=== PATIENT | male | born 1930 | race Caucasian/White ===

== ENCOUNTER 2017-03-07 09:34 | Outpatient (CLI) | payer MEDICARE, BC ==
--- NOTE | 2017-03-07 10:44 | CT ---
CT CHEST NONCONTRAST: Date: 03/07/17 HISTORY: Right lower lobe nodule. Follow-up. COMPARISON: 10/03/13 and 03/17/16. FINDINGS: The ill-defined infiltrate-like opacity involving the superior segment left lower lobe abutting the major fissure is unchanged in appearance from the previous exam. Dating back to 2013, slight enlarge ment has occurred. No new parenchymal lung masses are evident. No pleural fluid or pneumothorax. Lack of contrast limits evaluation of the mediastinum. There is calcification in the arterial struct ures. Within the partially visualized upper abdomen, a cyst within the dome of the liver is unchange d in appearance. IMPRESSION: 1. Stable CT appearance of the focal infiltrate within the superior segment right lower lobe compar ed to most recent exams. Slight long-term enlargement has occurred since 2013. No new abnormalities are evident. 2. Atherosclerosis. POS: JEFFREY
== END 2017-03-07 09:35 | disposition home or self-care (01) ==
LOC: CT 09:34
PROVIDERS: ATTEND Internal Medicine Critical Care Medicine
DX: R91.1 Solitary pulmonary nodule (principal); R91.8 Other nonspecific abnormal finding of lung field; I70.90 Unspecified atherosclerosis
CPT/HCPCS: 71250

== ENCOUNTER 2017-09-03 23:10 | Inpatient (IN) | payer MEDICARE, BC ==
--- NOTE | 2017-09-04 | RAD ---
AP VIEW OF THE CHEST: 09/03/17 INDICATION: Shortness of breath with cough and fever. The exam is compared to a prior dated 12/21/16. FINDINGS: There is patchy air space opacity within the right lung but more so within the right lower lobe. No p leural effusion is evident. Mild cardiomegaly is stable. IMPRESSION: Patchy air space opacity in the right lower lobe suspicious for pneumonia. Recommend radiographic fol lowup to resolution. POS: LICHAH
[2017-09-04] MEDS ORDERED: Acetaminophen 500 MG TAB ONE (00:01)
[2017-09-04] MEDS ORDERED: cefTRIAXone\\ROCEPHIN 2 GM VIAL ONE (00:13)
[2017-09-04 00:31] LABS: #Lymphocytes 0.9 thou/uL (1.20-3.40); #Monocytes 0.8 thou/uL (0.11-0.59); #Neutrophils 9.1 thou/uL (1.40-6.50); %Basophils 0.2 % (0.0-1.0); %Eosinophils 0.1 % (0.0-10.0); %Lymphocytes 8.3 % (21.0-51.0); %Monocytes 7.1 % (0.0-10.0); %Neutrophils 84.3 % (42.0-75.0); Hemoglobin 12.9 g/dL (14.0-18.0); Mean Corpuscular HGB CONC 34.3 g/dL (32.0-36.0); Mean Corpuscular Hemoglobin 30.3 pg (27.0-31.0); Mean Corpuscular Volume 88.2 fl (80.0-94.0); Mean Platelet Volume 8.2 fL (7.4-10.4); Platelet Count 121 thou/uL (130-400); RBC Distribution Width 12.4 % (11.5-14.5); Red Blood Cell (RBC) Count 4.27 mill/uL (4.70-6.10); White Blood Cell (WBC) Count 10.8 thou/uL (4.8-10.8)
[2017-09-04 00:32] LABS: ALT (SGPT) 24 U/L (8-55); AST (SGOT) 22 U/L (5-34); Albumin 3.9 g/dL (3.4-4.8); Alkaline Phosphatase 68 U/L (40-150); Anion Gap 11 mmol/L (10-20); BUN (Urea Nitrogen) 18 mg/dL (8.4-25.7); Bilirubin, Total 0.6 mg/dL (0.2-1.2); CK (CPK) 176 U/L (30-200); Calc. Creatinine Clearance 0 mL/min (70-130); Carbon Dioxide 28 mmol/L (23-31); Chloride 99 mmol/L (98-107); Estimated GFR-MDRD 61; Globulin 2.3 g/dL (2.4-3.5); Glucose 117 mg/dL (83-110); Lipase 14 U/L (8-78); Magnesium 1.8 mg/dL (1.6-2.6); Potassium 3.4 mmol/L (3.5-5.1); Protein, Total 6.2 g/dL (5.8-8.1); Sodium 135 mmol/L (136-145)
[2017-09-04 00:34] LABS: CKMB 0.9 ng/mL (0-6.6); Troponin I Less than 0.010 ng/mL (< 0.028)
[2017-09-04] MEDS ORDERED: Oseltamivir 75 MG CAP PO SCH (02:00)
[2017-09-04] MEDS ORDERED: Esmolol 2,500 MG/250 ML 250 ML IVPB SCH (05:15)
[2017-09-04 05:21] LABS: Bilirubin Negative (Negative); Blood, Urine Negative (Negative); Clarity CLEAR (Clear); Glucose, Urine (Dipstick) Negative (Negative); Leukocyte Negative (Negative); Nitrite Negative (Negative); Protein, Urine (Dipstick) Trace mg/dL (Neg-Trace); Urobilinogen 0.2 mg/dL (0.2-1.0)
--- NOTE | 2017-09-04 10:46 | PDOC.EVN ---
Event Note - Event Note Event Note: H&P DICTATED #[id number]
[2017-09-04] MEDS ORDERED: Potassium Chloride 20 MEQ TAB PO SCH (17:00)
[2017-09-04] MEDS ORDERED: predniSONE 20 MG TAB PO SCH (17:00)
--- NOTE | 2017-09-04 17:42 | CON ---
DATE OF CONSULTATION: 09/04/2017 SERVICE: Pulmonary Medicine. REASON FOR CONSULTATION: [facility] patient. HISTORY OF PRESENT ILLNESS: The patient is an 86-year-old white male with past medical history significant for essentially nothing. He was in his usual state of health until about 5 days prior to presentation. He started having a cough and congestion come on. He went to his primary care physician's office and was given an allergy medication. He also took some Mucinex. This progressed over the next 2 days. On , he went back and was given a small inhaler. Treating a mild case of bronchitis. He took this initially. He felt better, but then over the next 2 days, he got progressively weaker. He went back to an Urgent Care Clinic yesterday on Tuesday. He was given a dose of antibiotic. He took the antibiotic and went home to rest. Later that evening, when it was time for him to get out of a chair and into bed, he was so weak, his could get him out. At baseline, the patient is ambulatory. He typically is minimally active, but does engage in social activities like pool on a weekly basis as well as [employer] with some friends on a weekly basis. He drinks at least 3 glasses of wine on a daily basis. The gives me the impression that frequently he drinks much more than this. In addition to these symptoms, he has been having cough productive of yellow sputum, fever to 101 and 102. He does not have any nausea or vomiting. He is not having any myalgias. Apparently last night, he briefly went into atrial fibrillation with RVR, but has subsequently converted back to a sinus rhythm. PAST MEDICAL HISTORY: 1. Hypertension. 2. Dyslipidemia. 3. Diverticulosis. 4. Coronary artery disease. 5. History of skin cancer. PAST SURGICAL HISTORY: 1. Percutaneous coronary intervention. 2. Skin cancer. 3. Cholecystectomy. SOCIAL HISTORY: He drinks on a daily basis. It is at least three drinks daily , but sometimes much more. He denies any alcohol or illicit drug use. He has no exposure to chemicals, dust asbestos or tuberculosis. FAMILY HISTORY: Noncontributory. ALLERGIES: No known drug allergies. MEDICATIONS: List of his inpatient medications were reviewed. Multiple updates were made. REVIEW OF SYSTEMS: General, head, ears, eyes, nose, throat, cardiovascular, respiratory, GI, , musculoskeletal, neurologic and skin is negative except as mentioned in the HPI. PHYSICAL EXAMINATION: VITAL SIGNS: Afebrile currently. Pulse 104, blood pressure 65/56, respirations 23, saturation 98% on 2 liters nasal cannula. GENERAL: The patient is awake and alert, in no apparent distress. LUNGS: Decent air entry. Crackles are present. There is also rhonchi and prolonged expiratory phase with polyphonic wheezing. HEART: Normal rate, regular. ABDOMEN: Soft, nontender, nondistended. Bowel sounds are positive. MUSCULOSKELETAL: No cyanosis or clubbing. There is no pitting in the bilateral lower extremities. NEUROLOGIC: Nonfocal. LABORATORY DATA: WBC 10.8, hemoglobin 12.9, platelets 121,000. Basic metabolic profile is significant for potassium of 3.4. Liver function studies are unremarkable. Lactate negative. BNP 137, troponin 0.01. Urinalysis is unremarkable. Influenza A and B are negative. IMAGING: Chest x-ray demonstrates minimal bibasilar infiltrate is present. I do not see much in the way of pulmonary vascular congestion or cardiomegaly. ASSESSMENT: 1. Acute hypoxic respiratory failure. 2. Acute bronchitis. 3. Community-acquired pneumonia. 4. Atrial fibrillation with rapid ventricular response. 5. Hypokalemia. 6. Alcohol overuse. PLAN: We will continue his antibiotics. I will add some steroids and nebulized medication. Potassium will be replaced today. Magnesium will be obtained with tomorrow morning's labs. He will remain in the IMCU for the time being, but if he has no events on telemetry over the next 24 hours, he can likely be discharged home if he is on oxygen. Cardiology opinion apparently is pending. Dr. Mariscal will resume care in the morning. 70 minutes have been devoted to this patient in various activities. I personally reviewed all imaging studies and laboratory data noted within this document. For fifty percent of this time, I was interacting with the patient at the bedside or coordinating care with the care team. For the remainder of the time I was immediately available to the patient in the hospital unit. FAMILIA
[2017-09-04] MEDS: Atorvastatin Calcium 20 MG TAB PO SCH (20:58)
[2017-09-04] MEDS: guaiFENesin ER 600 MG TAB PO SCH (20:58)
[2017-09-04] MEDS: Carvedilol 25 MG TAB PO SCH (20:58)
[2017-09-04] MEDS ORDERED: Carvedilol 25 MG TAB PO SCH (21:00)
[2017-09-04] MEDS ORDERED: Lisinopril/Hydrochlorothiazide 20 mg/12.5 mg Tablet PO SCH (21:00)
[2017-09-05 06:16] LABS: Anion Gap 12 mmol/L (10-20); BUN (Urea Nitrogen) 16 mg/dL (8.4-25.7); Calc. Creatinine Clearance 67 mL/min (70-130); Calcium 8.8 mg/dL (7.8-10.44); Carbon Dioxide 28 mmol/L (23-31); Chloride 100 mmol/L (98-107); Estimated GFR-MDRD 66; Glucose 168 mg/dL (83-110); Magnesium 1.9 mg/dL (1.6-2.6); Potassium 3.7 mmol/L (3.5-5.1); Sodium 136 mmol/L (136-145)
--- NOTE | 2017-09-05 07:57 | CON ---
DATE OF CONSULTATION: 09/04/2017 HISTORY OF PRESENT ILLNESS: The patient is an 86-year-old gentleman who presents with weakness, dyspnea and was noted to have a rapid irregular heart rate. The patient has a previous history of coronary artery disease. In 2009, he underwent PTCA and stent placement into the RCA. The patient has subsequently done very well. He was in his usual state of health when he recently developed fevers and chills. He was placed on an antibiotic. He developed extreme weakness and was brought to the hospital for further evaluation. The patient was noted to be in an irregular heart rhythm. The patient denied having any palpitations. The patient denies have any chest discomfort. PAST MEDICAL HISTORY: 1. Coronary artery disease. 2. Hypertension. 3. Diverticulosis. PAST SURGICAL HISTORY: Cholecystectomy. SOCIAL HISTORY: Heavy use of alcohol. He is a former smoker. FAMILY HISTORY: Positive family history of coronary artery disease. ALLERGIES: No known drug allergies. MEDICATIONS ON ADMISSION: 1. Zetia 5 daily. 2. Lisinopril/hydrochlorothiazide 20/12.5 b.i.d. 3. Protonix 40 daily. 4. Potassium 8 mg daily. 5. Simvastatin 40 at bedtime. 6. Coreg 2 tablets p.o. b.i.d. 7. Aspirin 81 daily. 8. Azithromycin 250 daily. REVIEW OF SYSTEMS: Ten point system noted for increasing dyspnea, productive sputum and marked weakness. Ten-point system otherwise unremarkable. PHYSICAL EXAMINATION: GENERAL: Elderly gentleman in mild distress. VITAL SIGNS: Blood pressure was 96/56. NECK: Showed no jugular venous distention. LUNGS: His lungs have coarse breath sounds bilateral. HEART: Regular rate and rhythm, normal S1, S2. ABDOMEN: His abdomen is distended. EXTREMITIES: Showed trace edema. SKIN: Warm and dry. NEUROLOGIC: Nonfocal. VASCULAR: Radial pulses are 2+. LABORATORY RESULTS: Sodium is 135, potassium 3.4, chloride 99, bicarbonate 28, BUN 18, creatinine is 1.14, glucose is 117. BNP was 137, troponin less than 0.01. White blood count 10.8, hemoglobin 12.9, hematocrit 37.6, platelets 121. EKG revealed atrial fibrillation with a nonspecific ST-T wave abnormality. Follow up EKG #2 revealed normal sinus rhythm, normal ECG. IMPRESSION: 1. Paroxysmal atrial fibrillation. 2. Percutaneous transluminal coronary angioplasty and stent placement. 3. Hypertension. 4. Pneumonia. 5. Obesity. 6. Ethanol abuse. This gentleman presents with paroxysmal atrial fibrillation. He converted to normal sinus rhythm. From a cardiac standpoint, he has an elevated Chads-Vas score. Secondary to his advanced age and history of hypertension I would recommend chronic anticoagulation therapy. I would place the patient on Apixaban,and would discontinue his aspirin. We will follow this patient with you through his hospitalization. At this time, his blood pressure is low. We will hold his lisinopril and continue carvedilol. MTDD
--- NOTE | 2017-09-05 08:20 | HP ---
DATE OF ADMISSION: 09/04/2017 CHIEF COMPLAINT: Cough and shortness of breath. HISTORY OF PRESENT ILLNESS: This is an 86-year-old male who admitted to the hospital after 2-3 days of coughing and shortness of breath. The patient denies any fevers at home. On admission, the patie nt was noted to have a right lower lobe pneumonia on chest x-ray by ER and was given antibiotics appr opriately and was admitted to the hospital. The patient also states that he has had these symptoms i n the past; however, has not had issues to this extent of this intensity. He states in the past, he was given a Z-ALESIA a year ago and his symptoms improved; however, this time around patient states that given the high intensity, presented himself to the ER instead of going to Family Medicine doctor. T he patient currently denies any nausea, vomiting, diarrhea, constipation, chest pains, chills, but do es admit to shortness of breath and some fevers at home subjectively. The patient denies any allevia ting or aggravating factors. No other associated symptoms or complaints. at bedside. The pernell ent was seen and evaluated in the IMCU. All questions answered. ALLERGIES: No known drug allergies. SOCIAL HISTORY: Denies any drinking or smoking. States that he quit smoking in 1986. FAMILY HISTORY: Positive for heart disease, diabetes, and stroke. PAST MEDICAL HISTORY: Atrial fibrillation, abdominal surgeries after war injuries, hypertension, IMPLEMENTATION ENGINEER D, and heart disease. REVIEW OF SYSTEMS: Twelve point review of systems performed. Pertinent positives in the HPI, otherw ise negative. HOME MEDICATIONS: See AUG. PHYSICAL EXAMINATION: VITAL SIGNS: Blood pressure 106/85, respiratory rate of 18, heart rate of 98, temperature of 98. GENERAL: The patient is lying in bed, in no acute distress, appears very weak, but oriented. HEENT: Normocephalic, atraumatic. Pupils equal, round, react to light and accommodation. Oral cavi ty moist and pink. NECK: Supple, nontender, mobile thyroid appreciated. LUNGS: Clear to auscultation bilaterally, mildly decreased lung sounds on the right middle lobe jony on. CARDIOVASCULAR: S1, S2, 2/6 systolic ejection murmur appreciated. Irregularly irregular rhythm also noted. ABDOMEN: Positive bowel sounds. Surgical scar also noted. Soft, nontender, rotund abdomen. No ___ __ appreciated. EXTREMITIES: 2+ peripheral pulses with 1+ pitting edema in bilateral lower extremities. NEUROLOGIC: Cranial nerves II-XII intact. No loss of motor or sensory function. LABORATORY DATA: CBC indicates WBC count of 7.8, hemoglobin of 13, hematocrit of 37.6, platelet coun t of 121. BMP shows sodium 135, potassium 3.4, chloride 99, carbon dioxide 28, BUN 18, creatinine 1. 14. Lactic acid of 1.6. Urinalysis is negative for any abnormalities. Chest x-ray reveals patchy s pace opacity in the right lower lobe suspicious for pneumonia. ASSESSMENT AND PLAN: 1. Pneumonia. 2. Atrial fibrillation. 3. Hypertension. 4. Gastroesophageal reflux disease. 5. Hyperlipidemia. 6. Hypovolemia. PLAN: At this point in time, we will start the patient on Levaquin. We will hold off on IV fluids a s the patient appears volume overloaded to begin with and appears to have heart failure. Given his p ast medical history, we will consult Cardiology as well as Pulmonary. The patient sees Dr. Robin sewell Cardiology and Dr. Bhagat for Pulmonary outpatient. Repeat chest x-ray in the morning. We will o btain blood cultures and monitor the patient for symptomatic improvement. We will give sequential co mpression devices for DVT prophylaxis and Protonix for GI prophylaxis. Case and plan discussed with the patient and at length. They understand and agree with this plan.
[2017-09-05] MEDS: Ezetimibe 10 MG TAB PO SCH (08:59)
[2017-09-05] MEDS: Carvedilol 25 MG TAB PO SCH ×2 (09:00→21:15)
[2017-09-05] MEDS: predniSONE 20 MG TAB PO SCH (09:00)
[2017-09-05] MEDS: guaiFENesin ER 600 MG TAB PO SCH ×2 (09:00→21:15)
[2017-09-05] MEDS: Ferrous Fumarate 324 MG TAB PO SCH (09:00)
--- NOTE | 2017-09-05 17:48 | PDOC.PN ---
- Subjective Encounter Start Date: 09/05/17 Encounter Start Time: 17:35 Subjective: f/u for suspected CAP RML on Levaquin 500mg daily. Overall feeling -: better. Off O2 and maintaining sats in 90% range. - Objective MAR Reviewed: Yes Vital Signs & Weight: Vital Signs (12 hours) Temp Pulse Resp BP Pulse Ox 09/05/17 17:37 98.7 F 73 20 160/86 H 92 L 09/05/17 11:58 97.7 F 75 20 132/59 L 93 L 09/05/17 08:02 98.4 F 77 20 133/85 95 09/05/17 08:00 98.4 F 77 20 94 L 09/05/17 07:08 73 14 95 Weight Weight 210 lb 15.718 oz I&O: 09/04/17 09/05/17 09/06/17 06:59 06:59 06:59 Intake Total 400 Output Total 860 Balance -460 Result Diagrams: 09/03/17 23:52 09/05/17 04:13 Additional Labs: Microbiology 09/04/17 02:10 Nasal swab Influenza Types A,B Direct EIA - Final 09/04/17 04:03 Urine voided Urine Culture - Preliminary NO GROWTH AT 24 HOURS 09/03/17 23:41 Venous blood - Right Arm Blood Culture - Preliminary Specimen has been received and culture in progress. No Growth to date. 09/03/17 23:41 Venous blood - Left Arm Blood Culture - Preliminary Specimen has been received and culture in progress. No Growth to date. Laboratory Tests 09/03/17 23:52 B-Natriuretic Peptide 137.4 H Radiology Reviewed by me: Yes (2D echo - EF 55%, diast dysfxn) EKG Reviewed by me: Yes (Tele - SR) Phys Exam - Physical Examination Constitutional: NAD HEENT: PERRLA, oral pharynx no lesions Neck: no JVD, supple few coarse sounds in R lung field Respiratory: no wheezing Cardiovascular: RRR Gastrointestinal: soft, non-tender, no distention, positive bowel sounds Musculoskeletal: no edema, pulses present Neurological: normal sensation, moves all 4 limbs Psychiatric: A&O x 3 Skin: normal turgor, cap refill <2 seconds Dx/Plan (1) RML pneumonia Code(s): J18.1 - LOBAR PNEUMONIA, UNSPECIFIED ORGANISM Status: Acute Comment : 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, continue Levaquin 500mg daily (2) Acute respiratory failure with hypoxia Code(s): J96.01 - ACUTE RESPIRATORY FAILURE WITH HYPOXIA Status: Acute Comment: Improving, continue Dulera, Prednisone, Duonebs, wean off O2 support (3) Paroxysmal atrial fibrillation with rapid ventricular response Code(s): I48.0 - PAROXYSMAL ATRIAL FIBRILLATION Status: Acute Comment: Converted to SR, continue Coreg 25mg BID (4) Hypokalemia Code(s): E87.6 - HYPOKALEMIA Status: Acute Comment: Resolving (5) Coronary artery disease Code(s): I25.10 - ATHSCL HEART DISEASE OF [place] CORONARY ARTERY W/O ANG PCTRS Status: Chronic Comment: Continue ASA 81mg daily, Lipitor, Coreg - Plan continue antibiotics, PT/OT, geriatric social worker, respiratory therapy, DVT proph w/ SCDs Stable overall -: Continue Levaquin 500mg daily -: Continue Duonebs, Dulera and Prednisone -: OOB with PT -: Transfer to medical floor * AM lab: BMP
[2017-09-05] MEDS ORDERED: Loratadine 10 MG TAB PO PRN (18:00)
[2017-09-05] MEDS: Mometasone/Formoterol 120 PUFF INHALER INH SCH (18:21)
[2017-09-05] MEDS ORDERED: Potassium Chloride 20 MEQ TAB PO SCH (19:00)
[2017-09-05] MEDS ORDERED: Furosemide 20 MG/2 ML VIAL SLOW IVP SCH (19:00)
--- NOTE | 2017-09-05 20:28 | PRG ---
DATE OF SERVICE: 09/05/2017 SUBJECTIVE: Mr. Rivera was admitted to hospital with pneumonia. While he is here, he has been found to have an increased BNP and also transient atrial fibrillation with a rate of 117. He is back in s inus rhythm today. He also had an episode of nonsustained ventricular tachycardia 5 beats yesterday. He is feeling much better. His fever is controlled. PHYSICAL EXAMINATION: VITAL SIGNS: His blood pressure is 160/86, pulse 70. LUNGS: Some rhonchi, no wheezing. CARDIAC: Normal S1, normal S2. ABDOMEN: Soft, nontender. EXTREMITIES: There is only minimal edema. LABORATORY DATA: BNP in the was 137. The echocardiogram showed normal left ventricular systoli c function. CONCLUSION: 1. Diastolic heart failure, probably brought on by pneumonia. 2. Pneumonia. 3. Paroxysmal atrial fibrillation, has been in sinus rhythm. PLAN: 1. We will start subcutaneous Lovenox. 2. Consideration for Eliquis at the time of discharge. 3. Give a single dose of furosemide and potassium tonight. 4. Check base met tomorrow. 5. Like to monitor at least for 24 more hours on the monitor.
[2017-09-05] MEDS: Atorvastatin Calcium 20 MG TAB PO SCH (21:15)
[2017-09-05] MEDS: Valsartan 80 MG TAB PO SCH (21:15)
[2017-09-06 05:03] LABS: Anion Gap 11 mmol/L (10-20); BUN (Urea Nitrogen) 18 mg/dL (8.4-25.7); Calc. Creatinine Clearance 76 mL/min (70-130); Calcium 8.4 mg/dL (7.8-10.44); Carbon Dioxide 25 mmol/L (23-31); Chloride 102 mmol/L (98-107); Estimated GFR-MDRD 76; Glucose 141 mg/dL (83-110); Iron 43 ug/dL (65-175); Iron Binding Capacity, Total 174 mcg/dL (261-462); Magnesium 1.8 mg/dL (1.6-2.6); Potassium 3.4 mmol/L (3.5-5.1); Sodium 135 mmol/L (136-145)
[2017-09-06] MEDS: Mometasone/Formoterol 120 PUFF INHALER INH SCH ×2 (07:24→18:12)
--- NOTE | 2017-09-06 08:45 | PRG ---
DATE OF SERVICE: 09/05/2017 SUBJECTIVE : Mr. Rivera over the weekend. PHYSICAL EXAMINATION: VITAL SIGNS: He is afebrile, heart rate is 77, respiratory rate 20, oximetry is 93% on room air, blo od pressure 132/59. LUNGS: Remarkable for diffuse wheezes. HEART: Regular rhythm. S1 and S2 are normal. ABDOMEN: Soft and nontender. EXTREMITIES: Without clubbing, cyanosis, or edema. IMAGING DATA: Chest radiograph was reviewed, suggestive of pneumonia. IMPRESSION: 1. Pneumonia, community acquired. 2. History of density behind his scapula on the right, which had a low PET uptake. This has been fo llowed for several years and unchanged. Actually my initial concern for this was possibly an early s arcoma, but it has never changed, so we have not pursued this and he has actually declined workup of this. 3. History of PET negative, asymptomatic, PET negative, pulmonary nodule. 4. Reactive airways with this infection. 5. History of kidney stone. 6. 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 PLAN: Transfer out of the intermediate care unit to a medical bed. Ambulating if he does well with ambulation. Hopefully he will be a candidate to go home in 24-48 hours.
[2017-09-06] MEDS ORDERED: Enoxaparin Sodium 40 MG/0.4 ML SYRINGE SC SCH (09:00)
[2017-09-06] MEDS: guaiFENesin ER 600 MG TAB PO SCH ×2 (09:27→21:02)
[2017-09-06] MEDS: predniSONE 20 MG TAB PO SCH (09:27)
[2017-09-06] MEDS: Aspirin 81 mg Enteric Coated Tablet PO SCH (09:28)
[2017-09-06] MEDS: Valsartan 80 MG TAB PO SCH ×2 (09:28→21:01)
[2017-09-06] MEDS: Carvedilol 25 MG TAB PO SCH ×2 (09:28→21:02)
[2017-09-06] MEDS: Ezetimibe 10 MG TAB PO SCH (09:28)
[2017-09-06] MEDS: Ferrous Fumarate 324 MG TAB PO SCH (09:47)
--- NOTE | 2017-09-06 10:21 | PRG ---
DATE OF SERVICE: 09/06/2017 SUBJECTIVE: Mr. Rivera is doing much better today, feels better. He had a good diuresis yesterday and put out a couple of liters of fluid last night with 20 of Lasix. PHYSICAL EXAMINATION: VITAL SIGNS: Blood pressure is 140/70, pulse 74. LUNGS: Clear. CARDIAC: Normal S1 and normal S2. ABDOMEN: Soft, nontender. EXTREMITIES: Trivial edema, trace. ASSESSMENT: 1. Diastolic heart failure, improved. 2. Paroxysmal atrial fibrillation. 3. Hypertension. 4. Coronary artery disease. PLAN: 1. Start Xarelto. 2. Continue aspirin. 3. Daily Lasix. 4. Valsartan. 5. Carvedilol. 6. Home anytime from my standpoint.
[2017-09-06] MEDS ORDERED: Potassium Chloride 20 MEQ TAB PO SCH (10:30)
--- NOTE | 2017-09-06 14:32 | PDOC.PN ---
- Subjective Encounter Start Date: 09/06/17 Encounter Start Time: 14:10 Subjective: f/u for RML CAP on Levaquin. Feeling better except some coughing. -: Xarelto initiated for paroxysmal a-fib now SR. - Objective MAR Reviewed: Yes Vital Signs & Weight: Vital Signs (12 hours) Temp Pulse Resp BP Pulse Ox 09/06/17 13:53 84 16 97 09/06/17 12:00 98.5 F 75 16 136/77 92 L 09/06/17 07:46 98.5 F 75 16 141/73 H 95 09/06/17 07:24 86 16 96 09/06/17 07:22 86 16 96 09/06/17 04:00 97.9 F 72 16 143/71 H 96 Weight Weight 210 lb 5.136 oz I&O: 09/05/17 09/06/17 09/07/17 06:59 06:59 06:59 Intake Total 400 1640 Output Total 860 1900 Balance -460 -260 Result Diagrams: 09/03/17 23:52 09/06/17 04:11 Radiology Reviewed by me: Yes (2D echo - EF 55-60%, diast dysxn) EKG Reviewed by me: Yes (Tele - SR) Phys Exam - Physical Examination Constitutional: NAD HEENT: PERRLA, oral pharynx no lesions Neck: no JVD, supple scattered coarse sounds on R Respiratory: no wheezing Cardiovascular: RRR Gastrointestinal: soft, non-tender, no distention, positive bowel sounds Musculoskeletal: no edema, pulses present Neurological: normal sensation, moves all 4 limbs Psychiatric: A&O x 3 Skin: normal turgor, cap refill <2 seconds Dx/Plan (1) RML pneumonia Code(s): J18.1 - LOBAR PNEUMONIA, UNSPECIFIED ORGANISM Status: Acute Comment : 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, continue Levaquin 500mg daily (2) Acute respiratory failure with hypoxia Code(s): J96.01 - ACUTE RESPIRATORY FAILURE WITH HYPOXIA Status: Acute Comment: Improving, continue Dulera, Prednisone, Duonebs, wean off O2 support (3) Paroxysmal atrial fibrillation with rapid ventricular response Code(s): I48.0 - PAROXYSMAL ATRIAL FIBRILLATION Status: Acute Comment: Converted to SR, continue Coreg 25mg BID, Lasix 20mg daily, Xarelto 20mg daily (4) Hypokalemia Code(s): E87.6 - HYPOKALEMIA Status: Acute Comment: Resolving (5) Coronary artery disease Code(s): I25.10 - ATHSCL HEART DISEASE OF [place] CORONARY ARTERY W/O ANG PCTRS Status: Chronic Comment: Continue ASA 81mg daily, Lipitor, Coreg - Plan continue antibiotics, sr. social media & mobile manager, respiratory therapy, out of bed/ambulate , DVT proph w/SCDs Stable overall -: Continue Levaquin 500mg daily -: Continue Coreg 25mg BID -: Xarelto 20mg daily -: OOB/ambulate * KCL replacement * AM lab: BMP * Transfer to tele * Home in am
--- NOTE | 2017-09-06 15:18 | PQF ---
CLINICAL DOCUMENTATION IMPROVEMENT CLARIFICATION FORM: ICD-10 Updated PLEASE DO AN ADDENDUM TO THE PROGRESS NOTE WITH ANY DOCUMENTATION UPDATES OR ADDITIONS AND CARRY THROUGH TO DC SUMMARY. THANK YOU. DATE: 09/06/17 ATTN : DR. VERDIN Please exercise your independent, professional judgment in responding to the clarification form. Clinical indicators are provided on the bottom of this form for your review Please check appropriate box(es): [ ] Sepsis due to: (Pna, UTI, gangrenous gall bladder, etc.) Due to: [ ] Device (please specify) [ ] Implant [ ] Graft [ ] Infusion [ ] SIRS due to non-infectious process (please specify etiology) [ ] with organ dysfunction [ ] without organ dysfunction [ ] Severe sepsis with acute organ dysfunction of: (Examples: respiratory failure, encephalopathy, acute kidney failure, other) [ ] Septic Shock [ x ] Localized infection without sepsis [ ] Other diagnosis [ ] Unable to determine In addition, please specify: Present on Admission (POA): [ x ] Yes [ ] No [ ] Unable to determine For continuity of documentation, please document condition throughout progress notes and discharge summary. Thank You. CLINICAL INDICATORS - SIGNS / SYMPTOMS / LABS ER NOTE: "SEPSIS" PULSE 106 RR 24 TEMP 103.1 RISKS: PNEUMONIA TREATMENT: IV FLUIDS IV VANCOMYCIN (ER) IV ROCEPHIN (ER) IV LEVAQUIN (09/04-PRESENT) URINE AND BLOOD CULTURES (This form is maintained as a part of the permanent medical record) 2014 [employer]. All Rights Reserved [email or web address]
[2017-09-06] MEDS ORDERED: Temazepam 15 MG CAP PO PRN (16:34)
[2017-09-06] MEDS ORDERED: Rivaroxaban 10 MG TAB PO SCH (18:00)
[2017-09-06] MEDS: Atorvastatin Calcium 20 MG TAB PO SCH (21:02)
[2017-09-07 05:25] VITALS: BMI 30.6
[2017-09-07 06:21] LABS: Anion Gap 10 mmol/L (10-20); BUN (Urea Nitrogen) 17 mg/dL (8.4-25.7); Calc. Creatinine Clearance 81 mL/min (70-130); Calcium 8.5 mg/dL (7.8-10.44); Carbon Dioxide 26 mmol/L (23-31); Chloride 102 mmol/L (98-107); Estimated GFR-MDRD 80; Glucose 123 mg/dL (83-110); Potassium 3.6 mmol/L (3.5-5.1); Sodium 134 mmol/L (136-145)
[2017-09-07] MEDS: Mometasone/Formoterol 120 PUFF INHALER INH SCH (07:37)
--- NOTE | 2017-09-07 07:40 | PRG ---
DATE OF SERVICE: 09/06/2017 SUBJECTIVE: Mr. Rivera says he is feeling better. OBJECTIVE: VITAL SIGNS: He is afebrile. His vital signs have been stable. His pulse 81, respiratory rate 18, oximetry is 94% on room air, blood pressure 142/78. LUNGS: Still remarkable for very faint wheezes. HEART: Regular rhythm. ABDOMEN: Soft. IMPRESSION: 1. Pneumonia. 2. Diastolic heart failure. 3. Paroxysmal atrial fibrillation. 4. Asthmatic bronchitis with pneumonia. 5. History of a density behind his scapula on the right which had a low PET uptake and was calcified , this has not changed with serial exams. 6. History of a PET negative pulmonary nodule. 7. History of kidney stone. 8. History of gastrointestinal bleed with an arteriovenous malformation in the past. 9. Anticoagulation on this admission. 10. History of coronary artery disease. PLAN: I think he is stable to go home in the morning, hopefully. He can be transferred out of the ntermediate care unit. He is complaining of insomnia, so written for Restor[facility]. He has not ambulated all since he has been h ere and would be nice to see him ambulate before he goes to the house. It is hard to remember that omi clifford is 86 years old as he actually looks about 15 years younger than he is. It is imperative that we w alk before he goes to the house.
[2017-09-07] MEDS ORDERED: Potassium Chloride 20 MEQ TAB PO SCH (08:00)
[2017-09-07] MEDS ORDERED: Furosemide 20 MG TAB PO SCH (09:00)
[2017-09-07] MEDS: guaiFENesin ER 600 MG TAB PO SCH (09:23)
[2017-09-07] MEDS: Carvedilol 25 MG TAB PO SCH (09:24)
[2017-09-07] MEDS: predniSONE 20 MG TAB PO SCH (09:24)
[2017-09-07] MEDS: Valsartan 80 MG TAB PO SCH (09:24)
[2017-09-07] MEDS: Ezetimibe 10 MG TAB PO SCH (09:25)
[2017-09-07] MEDS: Aspirin 81 mg Enteric Coated Tablet PO SCH (09:25)
[2017-09-07] MEDS: Ferrous Fumarate 324 MG TAB PO SCH (09:26)
--- NOTE | 2017-09-07 12:07 | DIS ---
DATE OF ADMISSION: 09/04/2017 DATE OF DISCHARGE: 09/07/2017 DISCHARGE DIAGNOSES: 1. Right middle lobe community-acquired pneumonia, suspected gram positive cocci, improved. 2. Acute hypoxic respiratory failure secondary to #1, resolved. 3. Paroxysmal atrial fibrillation with rapid ventricular response, current sinus mechanism, stable. 4. Hypokalemia, resolved. 5. Coronary artery disease, chronic and stable. 6. Hypertension, labile. CONSULTATIONS: Dr. Kelly with Cardiology Service, Dr. Mariscal and Dr. Bhagat with Pulmonology Servi ce. PERTINENT LABORATORY AND X-RAY FINDINGS: Potassium ranged between 3.4-3.7. Lactic acid level 1.6. Magnesium level ranged between 1.8-1.9. Serum iron 43, TIBC 174, ferritin 449. LFTs within normal l imits. BNP 137, albumin 3.9, lipase 14. CBC showed a white blood cell count of 10.8, hemoglobin 13, hematocrit 38, platelet count 121 with 84% neutrophils. Blood cultures x2 from 09/03/2017 showed no growth at 48 hours. Influenza A and B antigen dated 09/04/2017 negative. Urine culture dated 09/04 showed no growth at 48 hours. Portable chest x-ray dated 09/03/2017 showed airspace opacity in the right lower lobe suspicious for pneumonia. A 2D transthoracic echocardiogram dated 09/04/2017 showed ejection fraction of 55-60%. D iastolic dysfunction noted. HOSPITAL COURSE: The patient was admitted to the Intermediate Care Unit after initially presenting w ith cough, shortness of breath, and hypoxia with chest imaging showing evidence of infiltrate of the right middle and lower lobe concerning for pneumonia. The patient was initially managed with oxygen supplementation as well as broad spectrum IV antibiotic therapy with Levaquin and given bronchodilato r therapy with DuoNebs. The patient developed paroxysmal atrial fibrillation converting back to sinu s mechanism spontaneously. The patient was evaluated by the Cardiology Service with recommendations for rate control measures as well as initiation of anticoagulation with Xarelto. The patient was ini tiated on the Xarelto 20 mg daily, and remained in sinus mechanism through the hospital course. 2D t ransthoracic echocardiogram was performed showing diastolic dysfunction with preserved ejection fract ion of 55-60%. The patient continued to receive general pulmonary supportive measures throughout the hospital course stabilizing in regards to respiratory status and maintaining O2 saturations in the m id 90% range on room air. The patient overall remained clinically stable and transferred to the tele metry unit for further observation without further evidence of acute arrhythmia, dysrhythmia or retur n of atrial fibrillation. I have examined the patient at the time of discharge and discussed test results and follow up instruc tions. The patient has verbalized agreement and understanding with the discharge plan. The patient overall clinically stable and ready for discharge 09/07/2017. DISCHARGE MEDICATIONS: 1. Levaquin 500 mg 1 tab p.o. daily x7 days. 2. Enteric coated aspirin 81 mg 1 tab p.o. daily. 3. Budesonide EC 3 mg p.o. daily. 4. Symbicort 160/4.5 one puff b.i.d. 5. Coreg 50 mg p.o. b.i.d. 6. Cetirizine 10 mg p.o. daily p.r.n. 7. Zetia 5 mg p.o. daily. 8. Lasix 20 mg 1 tab p.o. daily. 9. Mucinex DM 1200 mg/60 mg 1 tab p.o. b.i.d. 10. Protonix 40 mg 1 tab p.o. daily. 11. Potassium chloride 20 mEq p.o. q.a.m. 12. Prednisone 20 mg tab, take 2 tabs p.o. daily x 3 days, followed by 1 tab p.o. daily x 3 days, fo llowed by half a tab p.o. daily x3 days. 13. Xarelto 20 mg 1 tab p.o. daily. 14. Simvastatin 40 mg p.o. at bedtime. 15. Diovan 160 mg p.o. b.i.d. FOLLOWUP: The patient will follow up with his primary care provider, Dr. Rolando Adamson on 8 at 10:00 a.m. The patient will follow up with Dr. Lester Bhagat with Pulmonology Service and to c all his office for appointment time and date. The patient will follow up with Dr. Sarah Kelly with Cardiology Service and to call his office for appointment time and date. The patient will follow up with [facility] on 09/22/2017 at 10:00 a.m. CONDITION ON DISCHARGE: Stable. ACTIVITY: Ad arsen. DIET: Heart healthy. CODE STATUS: Full. DISPOSITION: Home on 09/07/2017. Total time preparing and coordinating discharge was 35 minutes.
[2017-09-07 14:10] VITALS: BP 165/79; TEMP 97.6
--- NOTE | 2017-09-14 23:04 | EKG ---
Test Reason : Blood Pressure : / mmHG Vent. Rate : 086 BPM Atrial Rate : 086 BPM P-R Int : 140 ms QRS Dur : 090 ms QT Int : 378 ms P-R-T Axes : 039 017 036 degrees QTc Int : 452 ms Normal sinus rhythm Normal ECG When compared with ECG of 21-DEC-2016 18:04, Premature supraventricular complexes are no longer Present Confirmed by Adalberto GONZALEZ ([id number]) on 09/14/2017 11:03:44 PM Referred By: ARCELIA Confirmed By:Adalberto GONZALEZ
--- NOTE | 2017-09-17 10:47 | PQF ---
KATHY INIGUEZ KENNON D MD [id number] ELOY WAN [id number] CLINICAL DOCUMENTATION CLARIFICATION FORM: POST DISCHARGE Addendum to original discharge summary date: ____ Late entry note date: __ DATE: 09/17/2017 ATTN: LEORA ROQUE MD Please exercise your independent, professional judgment in responding to the clarification form. Clinical indicators are provided on the bottom of this form for your review Please check appropriate box(s):HEART FAILURE: A. TYPE: [ ] Systolic / HFrEF [ ] Diastolic / HFpEF [ ] Combined Systolic / Diastolic B. ACUITY [ ] Acute [ ] Acute on Chronic [ ] Chronic [ ] Other diagnosis [ ] Unable to determine In addition, please specify: Present on Admission (POA): [ ] Yes [ ] No [ ] Unable to determine For continuity of documentation, please document condition throughout progress notes and discharge summary. Thank You. CLINICAL INDICATORS - SIGNS / SYMPTOMS / LABS DC Summary 2D transthoracic echocardiogram dated 09/04/2017 showed ejection fraction of 55-60% Diastolic dysfunction noted PN 09/06 Good diuresis yesterday and put out a couple of liters of fluid last night with 20 of Lasix Diastolic heart failure PN 09/05 Increased BNP Diastolic heart failure, probably brought on by pneumonia ER BNP 137.4 SOB, Hypoxia RISKS: History of CAD Hypertension TREATMENTS: Cardiac monitoring / telemetry Daily Lasix Valsartan Carvedilol (This form is maintained as a part of the permanent medical record) 2014 [employer]. All Rights Reserved Christos [email or web address] [phone] PT NOT SEEN BY ME ON THIS ADMISSION MTDD
--- NOTE | 2017-10-05 16:20 | PQF ---
KATHY INIGUEZ CHARLES DO [id number] [facility] [id number] CLINICAL DOCUMENTATION CLARIFICATION FORM: POST DISCHARGE Addendum to original discharge summary date: ____ Late entry note date: __ DATE: 10/05/2017 ATTN: BONNY VERDIN DO Please exercise your independent, professional judgment in responding to the clarification form. Clinical indicators are provided on the bottom of this form for your review Please check appropriate box(s): HEART FAILURE: A. TYPE: [ ] Systolic / HFrEF [ ] Diastolic / HFpEF [ ] Combined Systolic / Diastolic B. ACUITY [ ] Acute [ ] Acute on Chronic [ ] Chronic [ ] Other diagnosis [ x ] Unable to determine In addition, please specify: Present on Admission (POA): [ ] Yes [ ] No [ x ] Unable to determine For continuity of documentation, please document condition throughout progress notes and discharge summary. Thank You. CLINICAL INDICATORS - SIGNS / SYMPTOMS / LABS DC Summary 2D transthoracic echocardiogram dated 09/04/2017 showed ejection fraction of 55-60% Diastolic dysfunction noted PN 09/06 Good diuresis yesterday and put out a couple of liters of fluid last night with 20 of Lasix Diastolic heart failure PN 04/ Increased BNP Diastolic heart failure, probably brought on by pneumonia ER BNP 137.4 SOB, Hypoxia RISKS: History of CAD Hypertension TREATMENTS: Cardiac monitoring / telemetry Daily Lasix Valsartan Carvedilol (This form is maintained as a part of the permanent medical record) 2014 [employer]. All Rights Reserved Christos [email or web address] [phone] MTDD
== END 2017-09-07 13:27 | disposition home or self-care (01) | DRG 193 ==
LOC: ERS 23:10 → ERHOLD 09-04 01:42 → IMCU/EMU 09-04 09:42 → 2NO 09-06 22:11
PROVIDERS: ADMIT Internal Medicine; ATTEND Internal Medicine
DX: J18.9 Pneumonia, unspecified organism (principal); J96.01 Acute respiratory failure with hypoxia; I47.2 Ventricular tachycardia; J44.0 Chronic obstructive pulmonary disease with (acute) lower respiratory infection; I48.0 Paroxysmal atrial fibrillation; G62.9 Polyneuropathy, unspecified; I11.0 Hypertensive heart disease with heart failure; I50.30 Unspecified diastolic (congestive) heart failure; E78.5 Hyperlipidemia, unspecified; E66.9 Obesity, unspecified; E86.1 Hypovolemia; E87.6 Hypokalemia; I25.10 Atherosclerotic heart disease of native coronary artery without angina pectoris; K52.9 Noninfective gastroenteritis and colitis, unspecified; Z95.5 Presence of coronary angioplasty implant and graft; Z85.828 Personal history of other malignant neoplasm of skin; Z87.891 Personal history of nicotine dependence; K21.9 Gastro-esophageal reflux disease without esophagitis; Z87.442 Personal history of urinary calculi; Z79.01 Long term (current) use of anticoagulants; F10.10 Alcohol abuse, uncomplicated; J20.9 Acute bronchitis, unspecified; Z68.30 Body mass index [BMI] 30.0-30.9, adult
CPT/HCPCS: 36415; 71045; 80048; 80053; 81003; 82553; 82728; 83540; 83550; 83605; 83690; 83735; 83880; 84484; 85025; 87040; 87086; 87804; 93005; 93010; 93306; 93798; 94640; 94760; 96361; 96365; 96366; 96367; 96375; 99213; G0463; G8978-GP-CK; G8979-GP-CK; G8980-GP-CK; J0696; J1956; J3370; J7506; J7620

== ENCOUNTER 2017-09-21 08:46 | Outpatient (CLI) | payer MEDICARE, BC ==
--- NOTE | 2017-09-21 10:45 | RAD ---
PA AND LATERAL CHEST X-RAY: 09/21/2017 HISTORY: Dyspnea. COMPARISON: 09/03/2017 FINDINGS: The cardiac silhouette and pulmonary vasculature are within normal limits. Interstitial prominence i n the perihilar region on the prior study is not appreciated on this exam. The lungs appear clear. Degenerative changes are seen in the spine. No other interval change. IMPRESSION: 1. No acute cardiopulmonary process. 2. The interstitial prominence in the perihilar region on the prior study has resolved. No focal co nsolidation or mass is appreciated on this exam. POS: [facility]
== END 2017-09-21 08:47 | disposition home or self-care (01) ==
LOC: RAD 08:46
PROVIDERS: ATTEND Internal Medicine Critical Care Medicine
DX: R06.00 Dyspnea, unspecified (principal)
CPT/HCPCS: 71046

== ENCOUNTER 2017-09-24 03:27 | Inpatient (IN) | payer MEDICARE, BC ==
[2017-09-24 04:09] LABS: INR-International Normal Ratio 1.9; PTT 35.6 SEC (22.9-36.1)
[2017-09-24 04:11] LABS: #Eosinphils 0.1 thou/uL (0.0-0.7); #Monocytes 0.4 thou/uL (0.11-0.59); #Neutrophils 4.1 thou/uL (1.40-6.50); %Basophils 0.5 % (0.0-1.0); %Eosinophils 1.3 % (0.0-10.0); %Monocytes 7.6 % (0.0-10.0); %Neutrophils 72.6 % (42.0-75.0); Hemoglobin 10.1 g/dL (14.0-18.0); Mean Corpuscular HGB CONC 34.1 g/dL (32.0-36.0); Mean Corpuscular Hemoglobin 30.6 pg (27.0-31.0); Mean Corpuscular Volume 89.9 fl (80.0-94.0); RBC Distribution Width 13.2 % (11.5-14.5); White Blood Cell (WBC) Count 5.7 thou/uL (4.8-10.8)
[2017-09-24 04:20] LABS: ALT (SGPT) 25 U/L (8-55); AST (SGOT) 16 U/L (5-34); Albumin 3.4 g/dL (3.4-4.8); Alkaline Phosphatase 57 U/L (40-150); Anion Gap 9 mmol/L (10-20); BUN (Urea Nitrogen) 19 mg/dL (8.4-25.7); Bilirubin, Total 0.5 mg/dL (0.2-1.2); Calc. Creatinine Clearance 0 mL/min (70-130); Calcium 8.9 mg/dL (7.8-10.44); Carbon Dioxide 27 mmol/L (23-31); Chloride 107 mmol/L (98-107); Estimated GFR-MDRD 62; Globulin 1.9 g/dL (2.4-3.5); Glucose 150 mg/dL (83-110); Potassium 3.8 mmol/L (3.5-5.1); Protein, Total 5.3 g/dL (5.8-8.1); Sodium 139 mmol/L (136-145)
[2017-09-24 04:39] LABS: Mean Platelet Volume 8.2 fL (7.4-10.4); PLT Morphology Comment Appears Decreased; Platelet Count 102 thou/uL (130-400)
[2017-09-24 05:53] VITALS: BMI 29.7
[2017-09-24] MEDS ORDERED: Labetalol HCl 100 MG/20 ML VIAL SLOW IVP PRN (07:44)
[2017-09-24] MEDS: Sodium Chloride 0.9% 1,000 ML IV SCH (08:37)
[2017-09-24] MEDS: Pantoprazole 40 MG VIAL IVP SCH (08:38)
--- NOTE | 2017-09-24 09:32 | HP ---
PRIMARY CARE PHYSICIAN: Dr. Rolando Adamson. CHIEF COMPLAINT: Rectal bleeding. HISTORY OF PRESENT ILLNESS: Mr. Rivera is a pleasant 86-year-old gentleman who was actually recently discharged from our hospital. He was admitted with pneumonia and also developed atrial fibrillation during this time. He was treated and then released and had been placed on Xarelto for stroke preven tion. He says that he had gone to see Dr. Bhagat in his office for routine followup and had lab wor k done, at that time, his hemoglobin was around 13. He was doing okay after that appointment until a bout 4 days prior to admission. He started noticing a scant amount of blood in the toilet. Then, he noticed more dark blood, interspersed with some bright red blood. He had seen his primary care phys jose the day before admission, told him about the symptoms and he was instructed to discontinue Xare lto. Unfortunately, the bleeding continued, and as a result, he came to the ER for evaluation. In [facility] ER, his hemoglobin was obtained and it was 10.1 and he is being admitted for further evaluation. The patient during this time denies any abdominal pain, no nausea, no vomiting, no rectal pain. He d enies feeling dizzy, but has had some weakness. He denies chest pain or shortness of breath. In rev iew of his records, the patient has had a previous admission to the hospital with GI bleed, it was ba ck in 2017, and at that time, he was found to have a post cautery bleeding from an AVM in the cecum, and then prior to that in 2016, the patient says that he had an admission for a fairly severe diverti cular bleed. REVIEW OF SYSTEMS: CONSTITUTIONAL: There have been no fevers, no chills, no night sweats, no weight loss. HEENT: He denies any headaches, no dizziness, no visual changes, no sore throat, rhinorrhea, neck pa in, no adenopathy. PULMONARY: No hemoptysis, no cough, no wheezing. CARDIOVASCULAR: He denies any chest pain, no shortness of breath, no PND, no orthopnea. GASTROINTESTINAL: As the history of present illness. GENITOURINARY: No urinary frequency, hematuria, no hesitancy. MUSCULOSKELETAL: No muscle pains, joint pains or weakness. NEUROLOGIC: No focal weakness, numbness, no seizures. PSYCHIATRIC: No symptoms of anxiety or depression. SKIN AND INTEGUMENT: No skin changes. No rash. PAST MEDICAL HISTORY: The patient was recently admitted for pneumonia. He has history of atrial fib rillation, recently diagnosed; hypertension; gastroesophageal reflux disease; hyperlipidemia; coronar y artery disease; COPD; diverticulosis and history of cecal AV malformations. PAST SURGICAL HISTORY: He has had a cholecystectomy in 1973. He says multiple skin cancer removed. ALLERGIES: No known drug allergies. SOCIAL HISTORY: He is . He lives at home with his . He has three children. He is a for [employer] smoker. He quit in 1986. Prior to that, he was smoking up to a pack and a half a day. He would like to be a FULL [employer] and his surrogate decision maker is his . FAMILY HISTORY: Significant for his father had heart disease, prostate and lung cancer. CURRENT MEDICATIONS: Xarelto 20 mg daily, simvastatin 40 mg q.p.m., Diovan 160 mg twice a day, potas sium chloride 20 mEq daily, Protonix 40 mg daily, Lasix 20 mg daily, Zetia 5 mg daily, Carvedilol 25 mg twice a day, and aspirin 81 mg a day. PHYSICAL EXAMINATION: GENERAL: He is alert and oriented. He appears to be in no acute distress. VITAL SIGNS: Blood pressure was 167/79, heart rate 65, respiratory rate of 20, temperature is 98.4, and O2 sat was 97% on room air. HEENT: Pupils are equal, round, and reactive. Extraocular muscles are intact. His sclerae are anic teric and they are slightly pale. Throat: There is no erythema, no exudates. NECK: No adenopathy, no bruits. LUNGS: Clear to auscultation, no wheezing, no rales. CARDIOVASCULAR: He has a normal S1, S2. I did not appreciate an S3 or S4. No murmurs, clicks, no r ubs. ABDOMEN: Obese, it is soft, it is nontender, nondistended. Positive for bowel sounds. No rebound, no guarding. EXTREMITIES: There is no clubbing, cyanosis, no edema. NEUROLOGICALLY: The exam is nonfocal. LABORATORY RESULTS: White blood cell count 5.7, hemoglobin 10.1, hematocrit is 29.6, platelet count is 102. INR is 1.9. Sodium 139, potassium 3.8, chloride is 107, CO2 is 27, BUN of 19, creatinine 1. 12, glucose is 105. ASSESSMENT AND PLAN: 1. This is a pleasant 86-year-old gentleman who presents to the emergency room with a GI bleed. He sounds to have components of both dark stool as well as bright red blood per rectum. However, in the past, his bleeding site has been from the colon. He will be admitted to the floor. We will place h im on maintenance IV fluids. Start him on an IV proton pump inhibitor. Xarelto has already been hel d and Gastroenterology that is will be consulted. 2. Regarding the atrial fibrillation, again at this time, Xarelto will need to be held as well as an y anti-inflammatory medication. His rate is currently controlled. 3. Hypertension. Since, he will be n.p.o. for now, we will need to use p.r.n. IV medications for bl ood pressure control. 4. History of chronic obstructive pulmonary disease. We will have DuoNeb available as needed and fu rther recommendations will be to follow.
[2017-09-24] MEDS ORDERED: GoLYTELY 4,000 ml Bottle PO SCH (10:45)
--- NOTE | 2017-09-24 11:41 | CON ---
DATE OF CONSULTATION: 09/24/2017 REQUESTING PHYSICIAN: Dr. Morales. REASON FOR CONSULTATION: GI bleeding. HISTORY OF PRESENT ILLNESS: Oseas Rivera is a very pleasant 86-year-old man, previously seen by my GI colleague, Dr. Tee Mccarthy. 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 Back in 12/2016, he was admitted with lower GI bleeding and acute blood loss anemia. Dr. Quesada performed colonoscopy an d cauterized an actively bleeding cecal AVM. The patient continued to have bleeding and I actually p erformed a second colonoscopy that admission, which demonstrated a large cecal ulcer related to his r ecent APC treatment, but no active bleeding at that time. The patient's bleeding resolved and he did well thereafter. Hemoglobin came up nicely and was stable at 13 for a long time. As recently as 2 weeks ago, hemoglobin was 13 and he had no overt bleeding. He had a recent hospitalization with pneu monia and sepsis and went into atrial fibrillation. At that time, he was put on Xarelto for stroke p rophylaxis. Then, about a week ago, they say that he started having some red blood and quite dark st ool. They held the Xarelto for a couple of days and this seemed to resolve, so then they went back o n it and he again started having red blood in the stool and dark stool. He started having a little b it of generalized weakness though no significant shortness of breath, no presyncope. He presented fo r further evaluation and his hemoglobin has trended down to 10.1 just over the past couple of weeks. BUN is normal at 19. His Xarelto was held this morning. His last bowel movement was about 2:00 a.m ., so 8 hours ago. He has not had any abdominal pain, nausea, or vomiting throughout all this. His appetite is fine. No fever. He is hemodynamically stable. Xarelto was held this morning on admissi on. REVIEW OF SYSTEMS: Full review of systems including constitutional, head, eyes, ears, nose, throat, GI, , cardiovascular, respiratory, musculoskeletal, and neurologic systems is negative except as no facundo in the HPI. PAST MEDICAL HISTORY: 1. Right-sided colonic AVMs, with actively bleeding cecal AVM, treated with APC in 12/2016. 2. Pancolonic diverticulosis. 3. Cholecystectomy in 1973. 4. Coronary artery disease. 5. Hyperlipidemia. 6. Hypertension. 7. Chronic obstructive pulmonary disease. 8. Pneumonia/sepsis with recent hospitalization. 9. Atrial fibrillation, newly diagnosed, newly on Xarelto. ALLERGIES: No known drug allergies. OUTPATIENT MEDICATIONS: Xarelto 20 mg daily, aspirin 81 mg daily, Zocor, Diovan, Lasix, Zetia, Coreg , Protonix 40 mg daily. SOCIAL HISTORY: He is a former smoker, quit in 1986. FAMILY HISTORY: Father had prostate and lung cancer. PHYSICAL EXAMINATION: VITAL SIGNS: Temperature 98.1, pulse 69, blood pressure 146/67, 99% oxygen saturation on room air. GENERAL: An 86-year-old gentleman, lying in bed comfortably, in no distress. MENTAL: Alert and fully oriented, pleasant, and conversational. SKIN: He is a bit pale, no jaundice, no rash visible or palpable. EYES: No scleral icterus. Extraocular movements intact. ENT: Mucous membranes moist, no oral lesions. LYMPH: No submandibular or supraclavicular lymphadenopathy. THYROID: Nontender to palpation. HEART: Regular rate and rhythm. LUNGS: Clear to auscultation bilaterally. ABDOMEN: Bowel sounds present, soft and nontender to palpation throughout. EXTREMITIES: No peripheral edema. VESSELS: Radial pulses 2+ bilaterally. NEUROLOGICAL: Cranial nerves II-XII intact bilaterally. No focal deficits. LABORATORY STUDIES: Hemoglobin 10.1, down from 13 just a couple of weeks ago; WBC is 5.7; platelets 102. INR 1.9. Sodium 139, potassium 3.8, BUN 19, creatinine 1.12. Total bilirubin 0.5, alkaline ph osphatase 57, AST 16, ALT 25, albumin 3.4. ASSESSMENT AND PLAN: 1. Lower gastrointestinal bleeding. 2. Acute blood loss anemia. 3. History of cecal arteriovenous malformations with bleeding in the past. 4. History of pancolonic diverticulosis. 5. Atrial fibrillation, on Xarelto. Clinically, I most suspect the patient is having bleeding from his right-sided colonic AVMs. These bled spontaneously and significantly last year. Other possibili ty would be a diverticular bleed. I discussed with the patient that these arteriovenous malformation s put him at a high risk for bleeding if he is going to be on any anticoagulation, and so the risks a nd benefits certainly need to be weighed in conjunction with his primary doctor and with his cardiolo gist, Dr. Kelly. For now, I would certainly hold the Xarelto. We will plan to administer bowel pre paration tonight for colonoscopy tomorrow morning. If the colonoscopy is completely normal, we would also perform EGD, but I suspect this will demonstrate arteriovenous malformations. If there is acti ve bleeding in the endoscopy tomorrow, we will likely need to treat again with APC. I did caution th e patient and his that APC treatment in the right colon does carry a higher risk of complication such as perforation, so I usually only apply treatment to an actively bleeding lesion. They express understanding. Thank you for the consultation. Please call back anytime with questions or concerns.
[2017-09-24] MEDS ORDERED: Ondansetron ODT 4 MG TAB PO SCH (21:45)
[2017-09-25 05:36] LABS: #Basophils 0.1 thou/uL (0.0-0.2); #Eosinphils 0.1 thou/uL (0.0-0.7); #Lymphocytes 1.5 thou/uL (1.20-3.40); #Monocytes 0.3 thou/uL (0.11-0.59); #Neutrophils 3.2 thou/uL (1.40-6.50); %Eosinophils 1.4 % (0.0-10.0); %Lymphocytes 29.3 % (21.0-51.0); %Monocytes 6.4 % (0.0-10.0); Hemoglobin 10.7 g/dL (14.0-18.0); Mean Corpuscular HGB CONC 33.6 g/dL (32.0-36.0); Mean Corpuscular Hemoglobin 30.2 pg (27.0-31.0); Mean Corpuscular Volume 89.9 fl (80.0-94.0); Mean Platelet Volume 7.8 fL (7.4-10.4); Platelet Count 114 thou/uL (130-400); RBC Distribution Width 13.2 % (11.5-14.5); Red Blood Cell (RBC) Count 3.54 mill/uL (4.70-6.10); White Blood Cell (WBC) Count 5.2 thou/uL (4.8-10.8)
[2017-09-25] MEDS: Sodium Chloride 0.9% 1,000 ML IV SCH (07:32)
[2017-09-25] MEDS ORDERED: Promethazine HCl 25 MG/ML VIAL IM PRN (09:51)
[2017-09-25] MEDS ORDERED: Promethazine HCl 25 MG/ML VIAL SLOW IVP PRN (09:51)
[2017-09-25] MEDS ORDERED: Ondansetron HCl/PF 4 MG/2 ML Vial IVP PRN (09:51)
[2017-09-25] MEDS ORDERED: Amoxicillin/Potassium Clav 875 MG TAB PO SCH ×2 (11:31→12:00)
[2017-09-25] MEDS ORDERED: PROPOFOL 200 MG/20 ML VIAL ONE (11:31)
[2017-09-25] MEDS ORDERED: Lidocaine 1% PF 5 ML VIAL ONE (11:31)
[2017-09-25] MEDS: Pantoprazole 40 MG VIAL IVP SCH (11:54)
--- NOTE | 2017-09-25 12:46 | PDOC.PN ---
- Subjective Encounter Start Date: 09/25/17 Encounter Start Time: 12:44 Mr. Rivera was seen today in follow-up of GI bleed. He deos not have any complaints. - Objective Resuscitation Status: Resuscitation Status FULL:Full Resuscitation MAR Reviewed: Yes Vital Signs & Weight: Vital Signs (12 hours) Temp Pulse Resp BP BP Pulse Ox 09/25/17 08:00 97.8 F 75 20 175/81 H 94 L 09/25/17 04:00 97.9 F 71 18 146/67 H 99 I&O: 09/24/17 09/25/17 09/26/17 06:59 06:59 06:59 Output Total 700 Balance -700 Result Diagrams: 09/25/17 05:21 09/24/17 03:48 Phys Exam - Physical Examination HEENT: PERRLA Respiratory: no wheezing, no rales, no rhonchi, clear to auscultation bilateral Cardiovascular: RRR, no significant murmur, no rub Gastrointestinal: soft, non-tender, positive bowel sounds Musculoskeletal: no edema, pulses present, edema present Neurological: non-focal Dx/Plan (1) GI bleed Code(s): K92.2 - GASTROINTESTINAL HEMORRHAGE, UNSPECIFIED Status: Acute Qualifiers: GI bleed type/associated pathology: unspecified gastrointestinal hemorrhage type Qualified Code(s): K92.2 - Gastrointestinal hemorrhage, unspecified (2) Paroxysmal atrial fibrillation with rapid ventricular response Code(s): I48.0 - PAROXYSMAL ATRIAL FIBRILLATION Status: Acute Comment: Converted to SR, continue Coreg 25mg BID, Lasix 20mg daily, Xarelto 20mg daily (3) Coronary artery disease Code(s): I25.10 - ATHSCL HEART DISEASE OF [place] CORONARY ARTERY W/O ANG PCTRS Status: Chronic Comment: Continue ASA 81mg daily, Lipitor, Coreg (4) Hypertension Code(s): I10 - ESSENTIAL (PRIMARY) HYPERTENSION Status: Chronic Qualifiers: Hypertension type: essential hypertension Qualified Code(s): I10 - Essential (primary) hypertension - Plan * GI bleed- Colonoscopy results were noted- Multiple AVM's in the right colon, and extensive diverticulosis * His H&H is stable * HTN- blood pressure is elevated- will restart his home medications * CAD- stable.
--- NOTE | 2017-09-25 13:14 | OP ---
DATE OF PROCEDURE: 09/25/2017 SURGEON: Feliz Benjamin M.D. [employer] SURGEON: None. PROCEDURE: Colonoscopy, diagnostic. INDICATIONS: 1. Lower gastrointestinal bleeding. 2. Acute blood loss anemia. 3. Known history of right colonic AVMs and diverticulosis. MEDICATIONS: See anesthesia record. FINDINGS: After discussion of the risks, benefits and alternatives of the procedure, informed consen t was obtained and witnessed. Pre-endoscopic cardiopulmonary examination was satisfactory. Timeout was performed before sedation was achieved. Sedation was achieved with anesthesia assistance in the endoscopy unit. Digital rectal exam was performed, which was unremarkable. A Pentax adult colonosco pe was inserted into the anus and passed forward in the usual fashion. I was able to visualize the i leocecal valve, but due to extensive looping within the colon, I was not able to visualize the cecal base. The patient has a large ventral abdominal hernia and this made it quite difficult to advance t he endoscope beyond the proximal ascending colon. The terminal ileum was not intubated. There was n o old blood or active bleeding noted on this examination. I did see a couple of medium to large [place] riovenous malformations in the ascending colon. There was no active bleeding from either of these le sions. There was no blood coming from the region of the cecum. There was no old blood or active ble eding throughout the colon. There is diverticulosis, which is quite heavy throughout the entire colo n. No other mucosal abnormalities were visualized on forward or retroflexed views. During the exam[facility], the patient did have an episode of emesis of a small amount of clear fluid and it was felt th at he likely aspirated a small amount of fluid. His oxygen saturations remained satisfactory. The c olonoscope was completely withdrawn and the patient allowed to recover. He otherwise tolerated the p rocedure well. The decision was made to start prophylactic antibiotics due to his witnessed small vo lume aspiration. IMPRESSION: 1. Multiple right-sided colonic arteriovenous malformations, nonbleeding. 2. Extensive diverticulosis, throughout the whole colon. 3. No old blood or active bleeding. 4. Possible small volume aspiration during the procedure. RECOMMENDATIONS: 1. Advance diet. 2. I would recommend minimizing or avoiding anticoagulation going forward. 3. We will give the patient Augmentin 875 mg by mouth twice daily for a 7-day course, due to this wi tnessed aspiration episode.
--- NOTE | 2017-09-25 17:30 | CON ---
DATE OF CONSULTATION: 09/25/2017 REASON FOR CONSULTATION: 1. History of paroxysmal atrial fibrillation. 2. Gastrointestinal bleeding secondary to AVM. HISTORY OF PRESENT ILLNESS: Mr. Rivera is an 86-year-old gentleman with a history of paroxysmal atri al fibrillation and stable coronary disease. Also, has a history of hypertension. The patient's gas trointestinal bleeding a week ago, he was taken off the Xarelto for a few days went back on it, but t hen had significant recurrent GI bleeding prompting this admission. 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 He did not have active bleeding. The cell support operator has recommended a voiding or discontinuing anticoagulation if possible or mini mizing if needed. PAST MEDICAL HISTORY: 1. Coronary disease, previous stent implantation has been stable. 2. Hypertension, controlled. 3. Paroxysmal atrial fibrillation. The patient's atrial fibrillation was seen on a recent admission , at which time he had pneumonia. Dr. Bush saw the patient at that time. This CHADS-VASc score was 4 based on age, hypertension, and vascular disease. Patient also has some elevation of the blood sugar on this admission. REVIEW OF SYSTEMS: CONSTITUTIONAL: No significant weight gain or loss. VISION: No changes. HEARING: No changes. PULMONARY: No cough or wheezing. GASTROINTESTINAL: No nausea, vomiting, diarrhea. SKIN: No rashes. NEUROLOGIC: No unilateral weakness or numbness. PSYCHIATRIC: No unusual depression or anxiety. From a GI standpoint, he was passing bright red blood, but that resolved. His hemoglobin is 10.1, it was 13.2 when he was discharged recently. PHYSICAL EXAMINATION: GENERAL: A pleasant gentleman in no distress. VITAL SIGNS: Blood pressure 170/80, pulse 70. I do not think he probably received his blood pressur e medicine this morning. NECK: Neck veins normal. Carotid normal upstrokes. LUNGS: Clear. CARDIAC: Normal S1, normal S2. There is no murmur, rub, or gallop. ABDOMEN: Soft, nontender. EXTREMITIES: No clubbing or cyanosis. There is no edema. LABORATORY AND X-RAY FINDINGS: EKG sinus rhythm. ASSESSMENT: 1. Paroxysmal atrial fibrillation seen on recent admission. He did have evidence of pneumonia at th at time, but clearly did have paroxysmal atrial fibrillation. 2. CHADS VASc 4. 3. Coronary artery disease, stable. 4. Gastrointestinal bleeding seems to be related to arteriovenous malformation in addition to antico agulation. PLAN: 1. Staph anticoagulation for now. 2. Consideration for Watchman or other type device for left atrial appendage occlusion should be giv en. I do not think long-term anticoagulation is going to be feasible. The patient could probably to lerate 6 weeks' worth of anticoagulation. It is possible the fibrillation was only related to the pn eumonia, but we really do not know that with certainty. For now, would leave him off anticoagulation , would like to refer him to Dr. Luis Ocasio in [place] for possible left atrial appendage occlusion .
[2017-09-25] MEDS ORDERED: Simvastatin 40 MG TAB PO SCH (21:00)
[2017-09-25] MEDS ORDERED: Atorvastatin Calcium 20 MG TAB PO SCH (21:00)
[2017-09-25] MEDS ORDERED: Carvedilol 25 MG TAB PO SCH (21:00)
[2017-09-25] MEDS: Amoxicillin/Potassium Clav 875 MG TAB PO SCH (21:14)
[2017-09-25] MEDS: Valsartan 80 MG TAB PO SCH (21:14)
[2017-09-25] MEDS: Carvedilol 25 MG TAB PO SCH (21:14)
[2017-09-26] MEDS: Sodium Chloride 0.9% 1,000 ML IV SCH (04:14)
[2017-09-26] MEDS ORDERED: Potassium Chloride 20 MEQ TAB PO SCH (08:00)
[2017-09-26] MEDS ORDERED: Ezetimibe 10 MG TAB PO SCH (09:00)
[2017-09-26] MEDS ORDERED: Saccharomyces boulardii 250 MG CAP PO SCH (09:00)
[2017-09-26] MEDS ORDERED: Furosemide 20 MG TAB PO SCH (09:00)
--- NOTE | 2017-09-26 09:58 | PRG ---
DATE OF SERVICE: 09/26/2017 GI INPATIENT DAILY PROGRESS NOTE SUBJECTIVE: Mr. Rivera is feeling well, no abdominal pain. He has remained hemodynamically stable. He is tolerating his diet. No further overt bleeding. His anticoagulation has been discontinued for now. OBJECTIVE: VITAL SIGNS: Temperature 98.6, pulse 70, blood pressure 145/69, 98% oxygen saturation on room air. GENERAL: No acute distress. HEART: Regular rate and rhythm. LUNGS: Clear to auscultation bilaterally. ABDOMEN: Soft and nontender to palpation. EXTREMITIES: No peripheral edema. VESSELS: Radial pulses 2+ bilaterally. ASSESSMENT AND PLAN: 1. Lower gastrointestinal bleeding, resolved. 2. Acute blood loss anemia, stable. 3. 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 There is no further evidence of bleeding over the past couple of days. My impression remains that he likely bled from these large right-sided colonic AVMs. I appreciate Dr. Kelly's assistance. It appears that anticoagulation is going to be discontinued for now, and that he may be evaluated for Watchman or other type device for left atrial appendage occlusion. GI will sign off at this time. We will have him follow up in clinic with Dr. Mccarthy in the next few weeks. Please call back with any questions or concerns in the meantime. FAMILIA
[2017-09-26] MEDS: Valsartan 80 MG TAB PO SCH (10:50)
[2017-09-26] MEDS: Amoxicillin/Potassium Clav 875 MG TAB PO SCH (10:51)
[2017-09-26] MEDS: Carvedilol 25 MG TAB PO SCH (10:51)
[2017-09-26] MEDS: Pantoprazole 40 MG VIAL IVP SCH (10:52)
--- NOTE | 2017-09-26 11:30 | PRG ---
DATE OF SERVICE: 09/26/2017 SUBJECTIVE: Mr. Rivera is doing well, no complaints. No chest pain or pressure. PHYSICAL EXAMINATION: VITAL SIGNS: Blood pressure 145/69, pulse 70. LUNGS: Clear. CARDIAC: Normal S1 and normal S2. ABDOMEN: Soft, nontender. EXTREMITIES: No edema. ASSESSMENT: 1. Recent GI bleeding. 2. History of atrial fibrillation, diagnosed on a recent admission when he had pneumonia. 3. Arteriovenous malformations will not be able to be anticoagulated long-term. PLAN: 1. Discussed option of Watchman, the family is reluctant to do that. 2. Another option would be to implantable loop recorder and see how much atrial fibrillation is havi ng. The patient prefers that option. The patient could be released home after following that.
--- NOTE | 2017-09-26 14:36 | PDOC.PN ---
- Subjective Encounter Start Date: 09/26/17 Encounter Start Time: 14:34 Mr. Rivera was seen today in follow-up. He does not have any complaints today. He denies any rectal bleeding. - Objective Resuscitation Status: Resuscitation Status FULL:Full Resuscitation MAR Reviewed: Yes Vital Signs & Weight: Vital Signs (12 hours) Temp Pulse Resp BP BP Pulse Ox 09/26/17 08:40 98.6 F 70 20 145/69 H 98 09/26/17 04:15 97.6 F 73 18 138/61 95 I&O: 09/25/17 09/26/17 09/27/17 06:59 06:59 06:59 Output Total 700 Balance -700 Result Diagrams: 09/25/17 05:21 09/24/17 03:48 Phys Exam - Physical Examination HEENT: PERRLA Respiratory: no wheezing, no rales, no rhonchi, clear to auscultation bilateral Cardiovascular: RRR, no significant murmur Gastrointestinal: soft, non-tender, no distention, positive bowel sounds Musculoskeletal: no edema Dx/Plan (1) GI bleed Code(s): K92.2 - GASTROINTESTINAL HEMORRHAGE, UNSPECIFIED Status: Acute Qualifiers: GI bleed type/associated pathology: unspecified gastrointestinal hemorrhage type Qualified Code(s): K92.2 - Gastrointestinal hemorrhage, unspecified (2) Paroxysmal atrial fibrillation with rapid ventricular response Code(s): I48.0 - PAROXYSMAL ATRIAL FIBRILLATION Status: Acute Comment: Converted to SR, continue Coreg 25mg BID, Lasix 20mg daily, Xarelto 20mg daily (3) Coronary artery disease Code(s): I25.10 - ATHSCL HEART DISEASE OF [place] CORONARY ARTERY W/O ANG PCTRS Status: Chronic Comment: Continue ASA 81mg daily, Lipitor, Coreg (4) Hypertension Code(s): I10 - ESSENTIAL (PRIMARY) HYPERTENSION Status: Chronic Qualifiers: Hypertension type: essential hypertension Qualified Code(s): I10 - Essential (primary) hypertension - Plan * Rectal bleed- he is clinically stable, and no further bleeding has been noted. He has known AVM's and Extensive Diverticulosis * AFIB- he is now in sinus, and his first known episode was this past admission , and was in the setting of pneumonia with sepsis- This was discussed with Dr. Kelly, and Dr. Anaya. Will discontinue Xarelto indefinately, and an implantable loop recorder will be placed to see if he will require chcf anticoagulation * HTN- blood pressure is stable * Likely home this evening.
[2017-09-26 15:58] VITALS: BP 161/77; TEMP 98.1
[2017-09-26] MEDS ORDERED: Lidocaine 1% w/Epinephrine 1:200K 30 ML VIAL ONE (17:09)
--- NOTE | 2017-09-26 19:10 | DIS ---
DATE OF ADMISSION: 09/24/2017 DATE OF DISCHARGE: 09/26/2017 PRIMARY CARE PHYSICIAN: Rolando Adamson M.D. DISCHARGE DISPOSITION: Home. PRIMARY DISCHARGE DIAGNOSES: 1. Gastrointestinal bleed, on Xarelto. 2. 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 3. Extensive diverticulosis. 4. Paroxysmal atrial fibrillation. 5. Hypertension. 6. Gastroesophageal reflux disease. 7. Coronary artery disease. 8. Chronic obstructive pulmonary disease. DISCHARGE MEDICATIONS: Please note the patient has been taken off Xarelto indefinitely. Continue Di ovan 160 mg twice a day, simvastatin 40 mg q.p.m., K-Dur 20 mEq daily, Protonix 40 mg daily, Lasix 20 mg daily, Zetia 5 mg daily, Coreg 25 mg 2 tablets twice a day, aspirin 81 mg daily. CODE STATUS: FULL CODE. ALLERGIES: No known drug allergies. HOSPITAL COURSE: Mr. Rivera is a pleasant 86-year-old gentleman who presented to the emergency room with GI bleed. He was noted to have rectal bleeding, both dark and bright red blood. He had recentl y been placed on Xarelto after hospitalization for pneumonia and was found to have developed atrial f ibrillation. The Xarelto had been discontinued prior to admission by his primary care physician. Th e Xarelto was continued and to be discontinued and he was evaluated by Gastroenterology. He underwen t a colonoscopy and it was found that he had numerous atrial venous malformations in the colon as wel l as extensive diverticulosis. There was no acute bleeding noted at the time. Due to the fact that the patient had had several GI bleed in the past, once in 2016, once in 2017, and again now. His car diologist was consulted with regards to the need for anticoagulation. Especially given that the atri al fibrillation was only recently discovered and it was in the setting of pneumonia and sepsis. He i s currently in sinus rhythm. An electrophysiology consult was obtained and it was recommended that omi clifford have an implantable loop recorder placed to see whether or not he returned into atrial fibrillation and therefore it can be assessed whether he would need long-term anticoagulation or even considerati on for a Watchman device in the future.
--- NOTE | 2017-09-26 20:53 | OP ---
DATE OF PROCEDURE: 09/25/2017 LOOP RECORDER IMPLANTATION REFERRING PHYSICIANS: 1. Murray Morales M.D. 2. Sarah Kelly M.D. REASON FOR PROCEDURE: Mr. Rivera is an 86-year-old man, who has had history of paroxysmal atrial fib rillation, at which point he was started on Xarelto. Currently, though he is maintaining sinus rhyth m without any symptomatic recurrence of atrial fibrillation. We concerned about asymptomatic atrial fibrillation and potential stroke risk, hence he will require long-term monitoring for recurrent atri al fibrillation. For now, he will not be able to take anticoagulation short-term since there is some gastrointestinal bleed. DESCRIPTION OF PROCEDURE: The patient received lidocaine. After prep and drape in the precordial ar ea and the 5th intercostal space with lidocaine and with standard [employer] tool kit, a subcuta neous LINQ recorder was inserted. The LINQ recorder's serial number is [id number]. CONCLUSION: Successful loop recorder implant. PLAN: Routine followup.
--- NOTE | 2017-09-26 20:53 | CON ---
DATE OF CONSULTATION: 09/26/2017 ELECTROPHYSIOLOGY CONSULTATION REFERRING PHYSICIAN: Sarah Kelly M.D. I am seeing Mr. Rivera at our [facility] telemetry floor as an electrophysiology group segment consultant for the following problems: 1. Paroxysmal atrial fibrillation. A. Hospitalization due to recurrent gastrointestinal bleed, possibly due to AV malformation versus d iverticulosis. 2. History of paroxysmal atrial fibrillation. A. Prior documented episode of atrial fibrillation in the beginning of September with incidental pneumon ia and sepsis, then spontaneous conversion to sinus rhythm. 3. Elevated CHADS-VASc score with age, hypertension and vascular disease at a score of 4. 4. History of coronary artery disease with prior stent implantation in the past. ALLERGIES: None noted. MEDICATIONS AT HOME: Included Zetia, simvastatin, Protonix, Coreg, Ecotrin, Lasix, K-Dur, Xarelto, D iovan. SUBJECTIVE: Mr. Rivera is here due to gastrointestinal bleed. He started noticing some blood in the toilet for the last 4 days. Eventually dark blood was noted along with some bright red blood. His primary care physician stopped Xarelto and admitted him. The bleeding continued. He was admitted fo r evaluation with hemoglobin dropped below 10 and eventually the bleeding cleared up by holding Xarel to. Denies angina, CHF-like symptoms. No PND, orthopnea, lower extremity edema. No fever, chills o r cough. REVIEW OF SYSTEMS: The rest of the 12-point review of system is otherwise unremarkable. PAST MEDICAL HISTORY: As above. The patient has a prior history of GI bleed back in 2017. At that point, AV malformation was cauterized in the cecum. Also in 2016, he had a fairly severe diverticula r bleed and hospitalization as well. The patient also carries a history of COPD. SOCIAL HISTORY: Significant for him being , 3 children. He is a former smoker, quit in 1986. Denies ETOH or drug use. FAMILY HISTORY: Noncontributory for that heart disease, prostate and lung cancer. OBJECTIVE DATA: VITAL SIGNS: Blood pressure is 161/77, heart rate 68, respirations 20, temperature 98.1 degrees Fahr enheit. GENERAL: He is alert and oriented man, in no apparent distress. NECK: Supple. Jugular veins not distended. CHEST: Coarse without crackles. CARDIOVASCULAR: Heart sounds are regular to rate and rhythm. No murmur or gallop. ABDOMEN: Benign. Bowel sounds are positive. EXTREMITIES: Lower extremities without edema, clubbing or cyanosis. Pulses are adequate. NEUROLOGIC: The patient is nonfocal. MUSCULOSKELETAL: Without joint swelling or deformities. SKIN: Without rash. DATABASE: EKG reveals sinus rhythm. No signs of ST-T changes. LABORATORY DATA: White count 5.2, hemoglobin 10.1 and then 10.7, platelet count is 102 and then 114. INR is 1.9. Sodium 139, potassium 3.8, BUN 90, creatinine 1.1. AST and ALT 16 and 25. ASSESSMENT AND PLAN: Mr. Rivera is a pleasant 86-year-old man with prior history of atrial fibrillat ion and subsequent Xarelto use. Unfortunately, this exacerbated his GI bleeds. Currently, he is off Xarelto, but he is still in sinus rhythm. The difficulty is to predict whether this gentleman has future tendency for atrial fibrillation. His prior atrial fibrillation episode was in the setting of severe systemic illness. It is not unreason able to assume that the atrial fibrillation will be not occurring for a while, although recurrences c annot be completely ruled out. Had a significant CHADS-VASc score and risk for stroke, I think it wi ll be reasonable to suggest further monitoring. If indeed further atrial fibrillation is seen, he co uld be considered for Watchman device. I did discuss these issues with the patient and the family. They understand the pros and cons about the loop recorder implant. I think it is more reasonable champ gterm than outside monitoring which likely will not be giving us full evaluation for his atrial fibri llation. On the other hand, for now they are very hesitant about the Watchman procedure itself and further dis cussion needed depending on the findings of the loop recorder as an outpatient. We will schedule the RIDDHI implant. I discussed these issues with the patient, his as well as his son over the phone. I also discussed with Dr. Kelly. Thank you again for allowing me to participate in the care of this patient.
== END 2017-09-26 19:31 | disposition home or self-care (01) | DRG 982 ==
LOC: ERS 03:27 → 2NO 04:36
PROVIDERS: ADMIT Internal Medicine; ATTEND Internal Medicine
PROC: 0DJD8ZZ Inspection of Lower Intestinal Tract, Via Natural or Artificial Opening Endoscopic (ICD-10-PCS; 2017-09-25)
PROC: 0JH632Z Insertion of Monitoring Device into Chest Subcutaneous Tissue and Fascia, Percutaneous Approach (ICD-10-PCS; principal; 2017-09-26)
DX: K92.2 Gastrointestinal hemorrhage, unspecified (principal); D62 Acute posthemorrhagic anemia; I48.91 Unspecified atrial fibrillation; J44.9 Chronic obstructive pulmonary disease, unspecified; T45.515A Adverse effect of anticoagulants, initial encounter; Q27.33 Arteriovenous malformation of digestive system vessel; K57.30 Diverticulosis of large intestine without perforation or abscess without bleeding; I25.10 Atherosclerotic heart disease of native coronary artery without angina pectoris; E78.5 Hyperlipidemia, unspecified; I10 Essential (primary) hypertension; K21.9 Gastro-esophageal reflux disease without esophagitis; Z87.891 Personal history of nicotine dependence
CPT/HCPCS: 33282; 36415; 71046; 80053; 85025; 85610; 85730; 86850; 86900; 86901; 99285; A4216; C1764; C9113; J2001; J2704; Q0162

== ENCOUNTER 2017-11-28 13:10 | Observation (INO) | payer MEDICARE, BC ==
[2017-11-28 14:11] LABS: #Eosinphils 0.2 thou/uL (0.0-0.7); #Lymphocytes 1.2 thou/uL (1.20-3.40); #Monocytes 0.7 thou/uL (0.11-0.59); #Neutrophils 5.9 thou/uL (1.40-6.50); %Basophils 0.5 % (0.0-1.0); %Eosinophils 2.1 % (0.0-10.0); %Lymphocytes 14.5 % (21.0-51.0); %Monocytes 8.4 % (0.0-10.0); %Neutrophils 74.5 % (42.0-75.0); Hemoglobin 12.7 g/dL (14.0-18.0); Mean Corpuscular HGB CONC 33.5 g/dL (32.0-36.0); Mean Corpuscular Hemoglobin 29.2 pg (27.0-31.0); Platelet Count 136 thou/uL (130-400); RBC Distribution Width 13.9 % (11.5-14.5); Red Blood Cell (RBC) Count 4.34 mill/uL (4.70-6.10); White Blood Cell (WBC) Count 7.9 thou/uL (4.8-10.8)
--- NOTE | 2017-11-28 14:16 | CT ---
HEAD CT WITHOUT CONTRAST: Date: 11-28-17 Comparison: None. History: Fall, altered mental status. Technique: Serial axial CT imaging at 5 mm intervals from the vertex through the skull base without c ontrast. FINDINGS: There is diffuse cerebral volume loss with associated prominence of the CSF containing spaces. There is periventricular, deep, and subcortical white matter hypodensity, evidence of small vessel disease. The imaged paranasal sinuses and mastoid air cells are well aerated. There is atherosclerotic calcifi cation of the distal right vertebral artery and bilateral cavernous carotid arteries. No intracranial hemorrhage, midline shift, or mass effect. IMPRESSION: 1. Cerebral volume loss with ventricular enlargement and evidence of small vessel disease. No intracr anial hemorrhage or displaced calvarial fracture. POS: [facility]
[2017-11-28] MEDS ORDERED: Adacel (T-DAP) 0.5 ML VIAL ONE (14:22)
--- NOTE | 2017-11-28 14:37 | CT ---
CT CERVICAL SPINE WITHOUT CONTRAST: Date: 11/28/17 HISTORY: Fall. Post-traumatic pain. COMPARISON: None. TECHNIQUE: CT cervical spine is performed without contrast. Reformatted images are submitted for interpretation. FINDINGS: There is no prevertebral soft tissue swelling. Visualized soft tissue neck structures are unremarkabl e. Mild nonspecific heterogeneity of the thyroid gland. There is appropriate articulation of the lateral masses of c1 and C2. There is no evidence of cranioc ervical dissociation. Odontoid process is intact. There are degenerative changes of the facets. Vertebral body height is maintained. No evidence of fracture. Upper mediastinum is unremarkable. Presumed chronic change of lung apices. Varying degrees of central canal stenosis and foraminal narrowing on the basis of degenerative change . There is a central disc bulge at C4-C5 and C5-C6 with mild central canal stenosis. Varying degrees of foraminal stenosis. IMPRESSION: 1. No cervical spine fracture. 2. Degenerative changes as described above. POS: [facility]
[2017-11-28 14:41] LABS: ALT (SGPT) 15 U/L (8-55); AST (SGOT) 13 U/L (5-34); Albumin 3.9 g/dL (3.4-4.8); Alkaline Phosphatase 71 U/L (40-150); Anion Gap 12 mmol/L (10-20); BUN (Urea Nitrogen) 19 mg/dL (8.4-25.7); Bilirubin, Total 0.8 mg/dL (0.2-1.2); Calc. Creatinine Clearance 0 mL/min (70-130); Calcium 9.1 mg/dL (7.8-10.44); Carbon Dioxide 25 mmol/L (23-31); Chloride 107 mmol/L (98-107); Estimated GFR-MDRD 59; Globulin 2.3 g/dL (2.4-3.5); Glucose 117 mg/dL (83-110); Protein, Total 6.2 g/dL (5.8-8.1); Sodium 140 mmol/L (136-145)
--- NOTE | 2017-11-28 14:42 | CT ---
CT THORACIC SPINE WITHOUT CONTRAST: Date: 11/28/17 HISTORY: Fall. Post-traumatic pain. COMPARISON: None. TECHNIQUE: CT of the thoracic spine is performed in the axial plane. Reformatted images are submitted for interp retation. FINDINGS: Limited evaluation of the mediastinum due to lack of IV contrast. No mass, lymphadenopathy, or hemato ma. There is atherosclerosis of a nonaneurysmal aorta. Visualized upper solid organs are grossly unremarkable. Thoracic spine vertebral body height is maintained. There is no evidence of an acute fracture. Chroni c changes with osteophyte formation and loss of disc space height are noted. There is diffuse bone de mineralization. Incompletely evaluated mass in the superior segment of the right lower lobe, measuring 2.3 x 2.5 cm. IMPRESSION: 1. No evidence of thoracic spine fracture. 2. Incompletely evaluated opacity in the superior segment of the right lower lobe as described above . CODE LN. POS: [facility]
[2017-11-28 14:46] LABS: CKMB 1.2 ng/mL (0-6.6); Troponin I 0.027 ng/mL (< 0.028)
--- NOTE | 2017-11-28 14:47 | RAD ---
CHEST ONE VIEW PORTABLE: History: 86-year-old male with history of altered mental status. Patient fell on his right side and is having back pain. Comparison: 09-03-17 FINDINGS: Monitor leads overlie the chest. Inspiration is somewhat less than optimal. Mild vascular prominence probably related to poor inspiration. No pneumothorax or pleural effusion. No confluent pneumonia. Le ft sided loop recorder. IMPRESSION: No significant acute intrathoracic disease. Less than optimal inspiration with mild vascular prominen ce. Atherosclerosis of the aorta with ectasia. No pneumothorax or pleural effusion. POS: [facility]
--- NOTE | 2017-11-28 14:51 | CT ---
CT LUMBAR SPINE WITHOUT CONTRAST: Date: 11/28/17 HISTORY: Fall. Pain. COMPARISON: None. TECHNIQUE: Lumbar spine CT is performed without contrast. Reformatted images are submitted for interpretation. FINDINGS: Diffuse bone demineralization. Lumbar spine vertebral body height is maintained. No malalignment. No fracture. No spondylolysis. No spondylolisthesis. Visualized retroperitoneal structures are unremarkable. There is atherosclerosis of visualized aorta. Symmetric attenuation of psoas muscles. Limited evaluation of the contents of the central spinal canal and neural foramina. No high grade arlyn tral canal stenosis or high grade foraminal narrowing. IMPRESSION: No lumbar spine fracture. POS: [facility]
[2017-11-28] MEDS ORDERED: Bacitracin Zinc 1 Packet ONE (15:34)
[2017-11-28 15:41] LABS: Bilirubin Negative (Negative); Blood, Urine Negative (Negative); Clarity CLEAR (Clear); Glucose, Urine (Dipstick) Negative (Negative); Leukocyte Trace (Negative); Nitrite Negative (Negative); Protein, Urine (Dipstick) Negative (Neg-Trace); Specific Gravity, Urine 1.016 (1.002-1.036); Urobilinogen 0.2 mg/dL (0.2-1.0); pH, Urine 6.5 (5.0-9.0)
[2017-11-28 15:43] LABS: Bacteria/HPF None Seen HPF (None Seen); Hyaline Casts/LPF 0-3 HYALINE CAST LPF (0-3 Hyaline); RBC/HPF 0-3 HPF (0-3); Squamous Epithelial None Seen HPF (0-3); WBC/HPF 0-3 HPF (0-3)
[2017-11-28] MEDS ORDERED: Ondansetron ODT 4 MG TAB PO PRN (18:14)
[2017-11-28] MEDS ORDERED: Bisacodyl 5 MG TAB PO PRN (18:14)
[2017-11-28] MEDS ORDERED: Bisacodyl 10 MG SUPP PR PRN (18:14)
[2017-11-28] MEDS ORDERED: Senokot 8.6 MG TAB PO PRN (18:14)
--- NOTE | 2017-11-28 19:51 | HP ---
PRIMARY CARE PHYSICIAN: Dr. Rolando Adamson. AUTOMOBILE SEAT COVER INSTALLER: Dr. Sarah Kelly. CHIEF COMPLAINT: Status post mechanical fall. HISTORY OF PRESENT ILLNESS: This is an 86-year-old male with prior history of coronary artery diseas e, hypertension, paroxysmal atrial fibrillation, who initially presented today after a mechanical fal l. It appears that the patient's wooden cane, which he uses for ambulation, broke and subsequently t he patient fell and was brought to the emergency department by family. The patient has a known history of paroxysmal atrial fibrillation. Upon presentation to the emergenc y department, he was found to be in atrial fibrillation with heart rates ranging from the 80s all the way up to the 120s per ER report. EKG in the emergency department does show rate controlled atrial fibrillation, heart rate of 89. The patient subsequently in the emergency department, self converted without the use of medication, into normal sinus rhythm, heart rate in the 80s. The patient appears to have been having some progressive deconditioning per patient and family at bed side. This is started since his last discharge earlier this year for pneumonia and GI bleed. The charlene zambrano has been working with physical therapy on an outpatient basis and on an outpatient basis has al so been recommended for inpatient rehabilitation. REVIEW OF SYSTEMS: As per HPI. Constitutional: No recent fevers or chills. No significant weight loss or gain. HEENT: No new lightheadedness, dizziness, or vision changes. Cardiovascular: No jacqueline st pain, no chest pressure, no palpitations, no left-sided arm numbness or tingling. No episodic miguel phoresis. Respiratory: No shortness of breath, no cough, no congestion, no dyspnea with exertion. Gastrointestinal: The patient endorses having had some nausea since his last discharge from the hosp ital which has progressively improved. He denies any change in his appetite. Denies any abdominal p ain, constipation, or diarrhea. Genitourinary: Denies any dysuria, change in urinary frequency, kalli lity or quantity. Musculoskeletal: Denies any new myalgias or arthralgias. Skin: He denies any ne w rashes or lymphadenopathy. He is currently being treated for some "skin cancers." HOME MEDICATIONS: Please see the EMR for full details. I suspect that the list currently in the sys tem is from his prior hospitalization is actually incorrect. He is on statin and valsartan. He has been discontinued off Xarelto from his last hospitalization. He is still on pantoprazole. He is abril ing baby aspirin and carvedilol. This will need to be confirmed again with the patient's outpatient records and pharmacy records. ALLERGIES: No known drug allergies. PAST MEDICAL HISTORY: As per HPI, includes the followin. Atrial fibrillation, paroxysmal, which was diagnosed on his last hospitalization. 2. Hypertension. 3. Gastroesophageal reflux disease, 4. Hyperlipidemia. 5. Prior history of coronary artery disease. 6. COPD. 7. History of diverticulosis and cecal AV malformations. 8. Status post cholecystectomy in 1973. 9. Multiple episodes of skin cancer for which he is currently on a topical agent. SOCIAL HISTORY: He is accompanied here by his . Former smoker, who quit in 1986, who smoked a p ack a day. No alcohol or illicit drug use. Designates his as his medical decision maker if he is unable to make his own medical decisions and wishes to be FULL CODE at this point in time. FAMILY HISTORY: Significant for cancer of the prostate and lung in his father. His father also had heart disease. PHYSICAL EXAMINATION: GENERAL: The patient is awake, alert, oriented, conversant, in no acute distress, lying in the [facility] stretcher. HEENT: Normocephalic, atraumatic. Moist mucous membranes. Equal ocular motions are intact. CARDIOVASCULAR: S1, S2. No murmurs, rubs or gallops. Pulses 2+ bilateral upper extremities, no pit ting pedal edema. RESPIRATORY: Reasonable air movement. No conversational dyspnea. No wheezes, rales or rhonchi. Gr ossly clear to auscultation. ABDOMEN: Positive bowel sounds, soft, nontender to palpation. MUSCULOSKELETAL: Moving all 4 extremities. The patient is having significant difficulty repositioni ng of the bed without significant assistance, specifically being able to sit upright in the bed witho ut a 1-2 assist at this point in time. LABORATORY DATA AND IMAGING: WBC 7.9, hemoglobin 12.7, hematocrit 37.7, platelets 136. Sodium 140, potassium 4.0, chloride 107, bicarbonate 25, BUN 19, creatinine 1.17, glucose 117, calcium 9.1, total bilirubin 0.8, AST 13, ALT 15, alkaline phosphatase 71. Troponin 0.027, total protein 6.2, albumin 3.9, TSH 1.3474. UA is essentially bland with trace leukoesterase. EKG, normal sinus rhythm was doc umented on EKG and seen by myself. EKG also seen by myself in the emergency department earlier on pr esentation demonstrated atrial fibrillation with heart rate of 89. No ST-T wave changes suggestive o f acute coronary syndrome. ASSESSMENT AND PLAN: An 86-year-old male who presents status post fall, noted to have atrial fibrill ation. 1. Status post mechanical fall. It appears that the patient has sustained a component of deconditio ariana. The current fall appears to be mechanical in nature. The patient will have physical therapy c onsulted and may still benefit from inpatient rehabilitation from an outpatient basis. 2. Atrial fibrillation, currently in normal sinus rhythm. History of paroxysmal atrial fibrillation , also history of prior GI bleed. Given the patient having a history of GI bleed and currently being a fall risk, we would refrain from further anticoagulation. To consider aspirin 81 mg p.o. as possi ble alternative regimen. Consultation to the patient's electronics lead, Dr. Kelly. Multaq 400 mg p.o. b.i.d., new medication. Maintain the patient on telemetry. The patient is currently hemodynamicall y stable. 3. Hypertension, stable. Continue the patient on his home regimen. 4. Hyperlipidemia, stable. Continue the patient on his home regimen. 5. Diet: Cardiac as tolerated. 6. Activity: Out of bed as tolerated with physical therapy. The patient currently is a fall risk. 7. Deep venous thrombosis prophylaxis, Lovenox and sequentials. 8. Admit the patient to observation status.
[2017-11-28 20:09] VITALS: BMI 29.0
[2017-11-29] MEDS ORDERED: Enoxaparin Sodium 30 MG/0.3 ML SYRINGE SC SCH (09:00)
[2017-11-29] MEDS: Dronedarone HCl 400 MG TAB PO SCH ×2 (09:33→17:18)
--- NOTE | 2017-11-29 10:34 | PDOC.PN ---
- Subjective Encounter Start Date: 11/29/17 Encounter Start Time: 13:50 Subjective: Patient reports no SOB/CP overnight. Generalized weakness and some -: bilateral muscular tightness around neck from fall. No other complaint. - Objective Resuscitation Status: Resuscitation Status FULL:Full Resuscitation MAR Reviewed: Yes Vital Signs & Weight: Vital Signs (12 hours) Temp Pulse Resp BP BP Pulse Ox 11/29/17 08:34 97.8 F 71 18 11/29/17 07:37 97.8 F 71 18 173/90 H 94 L 11/29/17 04:00 98.0 F 78 18 146/71 H 94 L 11/28/17 23:51 98.8 F 79 16 139/65 97 Weight Weight 201 lb 8 oz I&O: 11/28/17 11/29/17 11/30/17 06:59 06:59 06:59 Intake Total 240 Output Total 400 Balance -160 Result Diagrams: 11/28/17 14:01 11/28/17 14:01 Phys Exam - Physical Examination Constitutional: NAD HEENT: moist MMs Respiratory: no wheezing, no rales, no rhonchi Cardiovascular: RRR, no significant murmur Gastrointestinal: soft, non-tender, positive bowel sounds Neurological: non-focal, moves all 4 limbs Psychiatric: normal affect, A&O x 3 Dx/Plan (1) Accident due to mechanical fall without injury Code(s): W19.XXXA - UNSPECIFIED FALL, INITIAL ENCOUNTER Status: Acute (2) Physical deconditioning Code(s): R53.81 - OTHER MALAISE Status: Acute (3) Paroxysmal atrial fibrillation Code(s): I48.0 - PAROXYSMAL ATRIAL FIBRILLATION Status: Chronic Comment: On Multaq overnight, to inpatient rehab if ok'd by cardiology (4) Coronary artery disease Code(s): I25.10 - ATHSCL HEART DISEASE OF [place] CORONARY ARTERY W/O ANG PCTRS Status: Chronic Comment: Continue ASA 81mg daily, Lipitor, Coreg (5) Hypertension Code(s): I10 - ESSENTIAL (PRIMARY) HYPERTENSION Status: Chronic Qualifiers: (6) Hyperlipidemia Code(s): E78.5 - HYPERLIPIDEMIA, UNSPECIFIED Status: Chronic (7) GERD (gastroesophageal reflux disease) Code(s): K21.9 - GASTRO-ESOPHAGEAL REFLUX DISEASE WITHOUT ESOPHAGITIS Status: Chronic (8) COPD (chronic obstructive pulmonary disease) Status: Chronic - Plan cont current plan of care, PT/OT Cleared by Dr. Kelly for discharge. Will d/c to [facility] * . - Discharge Day Encounter end time: 14:25
[2017-11-29] MEDS ORDERED: Valsartan 80 MG TAB PO SCH ×2 (13:30→21:00)
--- NOTE | 2017-11-29 16:29 | PRG ---
DATE OF SERVICE: 11/29/2017 SUBJECTIVE: Mr. Rivera had an episode of atrial fibrillation with a rapid rate yesterday, he is back in sinus rhythm now. OBJECTIVE: VITAL SIGNS: His blood pressure 185/91, pulse 70. LUNGS: Clear. CARDIAC: Normal S1 and S2. ASSESSMENT: 1. Paroxysmal atrial fibrillation. 2. Recurrent bleeding cannot be anticoagulated. 3. Previously, he had declined a Watchman device. Plan is on Multaq 400 mg twice a day. 4. Other medicines unchanged. I asked the patient to continue the other medicines and add Multaq 40 0 mg twice a day with food. Okay with me to transfer to rehabilitation.
[2017-11-29 16:53] VITALS: BP 159/84; TEMP 97.6
[2017-11-29] MEDS ORDERED: Atorvastatin Calcium 20 MG TAB PO SCH (21:00)
[2017-11-29] MEDS ORDERED: Simvastatin 40 MG TAB PO SCH (21:00)
[2017-11-29] MEDS ORDERED: Carvedilol 25 MG TAB PO SCH ×2 (21:00)
--- NOTE | 2017-11-30 01:54 | DIS ---
PRIMARY CARE PHYSICIAN: Rolando Adamson. REASON FOR ADMISSION: Mechanical fall and paroxysmal atrial fibrillation with intermittent tachycard ia. DISCHARGE DIAGNOSES: 1. Mechanical fall without injury. 2. Physical deconditioning. 3. Paroxysmal atrial fibrillation. 4. Coronary artery disease. 5. Hypertension. 6. Hyperlipidemia. 7. Gastroesophageal reflux disease. 8. Chronic obstructive pulmonary disease. PROCEDURES: 1. CT of the lumbar spine showing no evidence of fracture. 2. Chest x-ray showing no acute intrathoracic disease. 3. CT of thoracic spine without contrast showing no evidence of thoracic spine fracture, was incompl etely evaluated mass in the superior segment of the right lower lobe measuring 2.3 x [address] of the cervical spine showing no fracture. 5. CT of the head showing cerebral volume loss and ventricular enlargement and evidence of small ves jacob disease, but no intracranial hemorrhage or displaced fracture. CONSULTATIONS: Cardiology, Sarah Kelly M.D. SUMMARY OF HOSPITAL COURSE: This is an 86-year-old man with prior history of coronary artery disease , hypertension, paroxysmal atrial fibrillation, who presented after mechanical fall, his wooden cane broke and he fell, brought into the ER, he had x-ray done that showed no fracture. He does have a hi story of paroxysmal atrial fibrillation and his heart rate was ranging between 80s and 120s in the em ergency room. In the emergency room, he did self-convert down to sinus rhythm with heart rate in the 80s. The patient has had a progressive deconditioning and decline and has been evaluated for rehabi litation, to come to the emergency room, however, decided that he will be admitted due to the AFib, t he remainder of the evaluation in the hospital, the patient was admitted. He stayed in sinus rhythm. Dr. Kelly was consulted and put the patient on Multaq, watched on the monitor overnight, he had no arrhythmic events and the next day the patient was cleared for discharge. DISCHARGE MANAGEMENT: Discharged to [facility]. ACTIVITY: As tolerated. DIET: Healthy heart, low sodium diet. THERAPY: Occupational and physical therapy. DISCHARGE MEDICATIONS: 1. Aspirin 81 mg daily. 2. Budesonide 3 mg p.o. daily 3. Carvedilol 25 mg 2 tabs twice a day. 4. Multaq 400 mg twice a day. 5. Zetia 5 mg daily. 6. Ferrous sulfate 325 mg daily. 7. Furosemide 20 mg daily. 8. Zofran as needed. 9. Protonix 40 mg daily. 10. Potassium chloride 60 mEq daily. 11. Senokot as needed. 12. Simvastatin 40 mg at night. 13. Valsartan 160 mg twice a day.
[2017-11-30] MEDS ORDERED: Potassium Chloride 8 MEQ TAB PO SCH (08:00)
[2017-11-30] MEDS ORDERED: Potassium Chloride 20 MEQ TAB PO SCH ×2 (08:00)
[2017-11-30] MEDS ORDERED: Ezetimibe 10 MG TAB PO SCH (09:00)
[2017-11-30] MEDS ORDERED: Ferrous Sulfate 325 MG TAB PO SCH (09:00)
[2017-11-30] MEDS ORDERED: Furosemide 20 MG TAB PO SCH (09:00)
[2017-11-30] MEDS ORDERED: Non-Formulary Item 1 EACH (Ferrous Sulfate [Ferrous Sulfate] 325 MG) PO SCH (09:00)
[2017-11-30] MEDS ORDERED: BUDESONIDE 3 MG PO SCH (09:00)
[2017-11-30] MEDS ORDERED: Aspirin 81 mg Enteric Coated Tablet PO SCH (09:00)
--- NOTE | 2017-12-03 12:37 | EKG ---
Test Reason : Blood Pressure : / mmHG Vent. Rate : 076 BPM Atrial Rate : 076 BPM P-R Int : 142 ms QRS Dur : 086 ms QT Int : 406 ms P-R-T Axes : 045 037 047 degrees QTc Int : 456 ms Normal sinus rhythm Normal ECG Confirmed by CECILIA MCCARTY M.D. ([id number]), tape editor JULISSA FRIAS ([id number]) on 12/03/2017 12:37:20 PM Referred By: Confirmed By:CECILIA MCCARTY M.D.
== END 2017-11-29 18:00 ==
LOC: ERS 13:10 → 2NO 17:40
PROVIDERS: ADMIT Internal Medicine; ATTEND Internal Medicine
DX: I48.0 Paroxysmal atrial fibrillation (principal); I10 Essential (primary) hypertension; K21.9 Gastro-esophageal reflux disease without esophagitis; E78.5 Hyperlipidemia, unspecified; J44.9 Chronic obstructive pulmonary disease, unspecified; I25.10 Atherosclerotic heart disease of native coronary artery without angina pectoris; Z87.891 Personal history of nicotine dependence; Z79.82 Long term (current) use of aspirin; Z79.899 Other long term (current) drug therapy
CPT/HCPCS: 70450; 71045; 72125; 72128; 72131; 82553; 84484; 90471; 90715; 93005; 97116; 97139; 97535; 99285; G0378; G8978; G8979; G8987; G8988; 80053; 81003; 81015; 84443; 85025; J1650; Q0162

== ENCOUNTER 2018-02-13 10:20 | Outpatient (CLI) | payer MEDICARE, BC ==
[2018-02-13 12:00] LABS: Hemoglobin 12.9 g/dL (14.0-18.0); Mean Corpuscular HGB CONC 33.2 g/dL (32.0-36.0); Mean Corpuscular Hemoglobin 29.2 pg (27.0-31.0); Platelet Count 131 thou/uL (130-400); RBC Distribution Width 14.2 % (11.5-14.5); Red Blood Cell (RBC) Count 4.43 mill/uL (4.70-6.10); White Blood Cell (WBC) Count 6.7 thou/uL (4.8-10.8)
[2018-02-13 12:04] LABS: Anion Gap 10 mmol/L (10-20); BUN (Urea Nitrogen) 15 mg/dL (8.4-25.7); Calc. Creatinine Clearance 0 mL/min (70-130); Carbon Dioxide 26 mmol/L (23-31); Chloride 106 mmol/L (98-107); Estimated GFR-MDRD 60; Glucose 113 mg/dL (83-110); Potassium 3.7 mmol/L (3.5-5.1); Sodium 138 mmol/L (136-145)
== END 2018-02-13 10:21 | disposition home or self-care (01) ==
LOC: LABBT 10:20
PROVIDERS: ATTEND Internal Medicine Cardiovascular Disease
DX: Z01.812 Encounter for preprocedural laboratory examination (principal); I48.91 Unspecified atrial fibrillation
CPT/HCPCS: 80048; 85027

== ENCOUNTER → 2018-02-14 | Day surgery (SDC) | payer MEDICARE, BC ==
[2018-02-13 10:30] VITALS: BMI 29.0
[~2018-02-14] MED LIST: Carvedilol 25 MG TAB PO SCH; Losartan 25 MG TAB PO SCH; PROPOFOL 40 ML ONE
--- NOTE | 2018-02-14 14:32 | ECHO ---
TRANSESOPHAGEAL ECHOCARDIOGRAM: DATE OF PROCEDURE: 02/14/18 INDICATION: This is an 87-year-old gentleman with a history of paroxysmal atrial fibrillation. DESCRIPTION OF PROCEDURE: The patient was taken to the PACU. The patient was sedated by anesthesiology. A transesophageal probe was placed in the distal esophagus and stomach. Echocardiographic images were obtained. The transesophageal probe was removed. FINDINGS: 1. Normal left ventricular systolic function. 2. Biatrial enlargement. 3. Mild mitral regurgitation. 4. Mild tricuspid regurgitation. 5. A mass is noted either in or around the distal left atrial appendage suggestive of thrombus. 6. Atherosclerotic debris in the descending aorta. IMPRESSION: A mass is noted most likely in the distal left atrial appendage suggestive of thrombus.
== END ==
LOC: SDC 07:10
PROVIDERS: ATTEND Internal Medicine Cardiovascular Disease
PROC: B24BZZ4 Ultrasonography of Heart with Aorta, Transesophageal (ICD-10-PCS; principal; 2018-02-14)
DX: I48.0 Paroxysmal atrial fibrillation (principal); I08.1 Rheumatic disorders of both mitral and tricuspid valves; I70.0 Atherosclerosis of aorta; E78.5 Hyperlipidemia, unspecified; E11.9 Type 2 diabetes mellitus without complications; I11.0 Hypertensive heart disease with heart failure; I50.32 Chronic diastolic (congestive) heart failure; Z87.891 Personal history of nicotine dependence; Z79.82 Long term (current) use of aspirin; Z79.51 Long term (current) use of inhaled steroids; Z79.899 Other long term (current) drug therapy
CPT/HCPCS: 93312; J2704

== ENCOUNTER 2018-05-19 07:02 | Day surgery (SDC) | payer MEDICARE, BC ==
[2018-05-18 11:28] VITALS: BMI 29.2
[2018-05-19 07:58] LABS: #Eosinphils 0.1 thou/uL (0.0-0.7); #Lymphocytes 0.7 thou/uL (1.20-3.40); #Monocytes 0.5 thou/uL (0.11-0.59); #Neutrophils 5.9 thou/uL (1.40-6.50); %Basophils 0.2 % (0.0-1.0); %Lymphocytes 10.1 % (21.0-51.0); %Monocytes 6.5 % (0.0-10.0); %Neutrophils 82.3 % (42.0-75.0); Hemoglobin 10.9 g/dL (14.0-18.0); Mean Corpuscular HGB CONC 33.6 g/dL (32.0-36.0); Mean Corpuscular Volume 86.5 fL (78.0-98.0); Mean Platelet Volume 8.5 fL (7.4-10.4); Platelet Count 127 thou/uL (130-400); RBC Distribution Width 12.9 % (11.5-14.5); Red Blood Cell (RBC) Count 3.77 mill/uL (4.70-6.10); White Blood Cell (WBC) Count 7.2 thou/uL (4.8-10.8)
[2018-05-19] MEDS ORDERED: PROPOFOL 20 ML ONE (08:05)
[2018-05-19 08:07] LABS: INR-International Normal Ratio 1.2; PTT 28.7 SEC (22.9-36.1); Prothrombin Time 15.3 SEC (12.0-14.7)
[2018-05-19 08:18] LABS: Anion Gap 10 mmol/L (10-20); BUN (Urea Nitrogen) 16 mg/dL (8.4-25.7); Calc. Creatinine Clearance 54 mL/min (70-130); Calcium 9.1 mg/dL (7.8-10.44); Carbon Dioxide 27 mmol/L (23-31); Chloride 108 mmol/L (98-107); Estimated GFR-MDRD 54; Glucose 127 mg/dL (83-110); Potassium 3.6 mmol/L (3.5-5.1); Sodium 141 mmol/L (136-145)
--- NOTE | 2018-05-19 20:57 | ECHO ---
DATE OF PROCEDURE: 05/19/18 INDICATION: Paroxysmal atrial fibrillation and Watchman device. DESCRIPTION OF PROCEDURE: The patient was taken to the PACU. The patient was sedated by anesthesiology. A transesophageal pro be was placed into the distal esophagus and stomach. Echocardiographic images were obtained. The tr ansesophageal probe was removed. FINDINGS: 1. Normal left ventricular systolic function. 2. Normal mitral and aortic valves. 3. Mild mitral regurgitation. 4. Mild aortic regurgitation. 5. The Watchman is well positioned in the left atrial appendage. 6. There appears to be a very tiny jet in the well positioned Watchman device. 7. Atherosclerotic debris in the descending aorta. IMPRESSION: Well positioned Watchman device with a miniscule leak noted in the center of the device.
== END 2018-05-19 10:34 | disposition home or self-care (01) ==
LOC: CCL 07:02
PROVIDERS: ATTEND Internal Medicine Cardiovascular Disease
PROC: B24BZZ4 Ultrasonography of Heart with Aorta, Transesophageal (ICD-10-PCS; principal; 2018-05-19)
DX: I48.0 Paroxysmal atrial fibrillation (principal); I08.0 Rheumatic disorders of both mitral and aortic valves; I70.0 Atherosclerosis of aorta; Z79.02 Long term (current) use of antithrombotics/antiplatelets; Z79.51 Long term (current) use of inhaled steroids; Z79.82 Long term (current) use of aspirin; Z79.899 Other long term (current) drug therapy; Z95.818 Presence of other cardiac implants and grafts
CPT/HCPCS: 80048; 85025; 85610; 85730; 93005; 93010; 93312; J2704

== ENCOUNTER 2019-05-01 12:14 | Outpatient (CLI) | payer MEDICARE, BC ==
--- NOTE | 2019-05-01 12:44 | RAD ---
EXAM: Chest Two Views 05/01/2019 12:41 PM HISTORY: Acute bronchiolitis COMPARISON: Prior single view of the chest dated November 28, 2017 FINDINGS: Heart: There is mild cardiomegaly. There is a new loop recorder overlying left chest wall. Pulmonary vessels: Normal. Costophrenic angles: Clear. Lungs: Chronic lung changes are stable. No acute airspace consolidation is present. Pneumothorax: None. Osseous structures:Intact. Additional findings: None. IMPRESSION: No significant acute intrathoracic disease.
== END 2019-05-01 12:15 | disposition home or self-care (01) ==
LOC: BICRAD 12:14
PROVIDERS: ATTEND Family Medicine
DX: J21.9 Acute bronchiolitis, unspecified (principal)
CPT/HCPCS: 36415; 71046; 80048; 85025

== ENCOUNTER 2019-11-03 21:01 | Emergency (ER) | payer MEDICARE, BC, OTHER ==
[2019-11-03 21:49] LABS: #Eosinphils 0.1 thou/uL (0.0-0.7); #Lymphocytes 1.1 thou/uL (1.20-3.40); #Monocytes 0.8 thou/uL (0.11-0.59); #Neutrophils 5.2 thou/uL (1.40-6.50); %Basophils 0.6 % (0.0-1.0); %Eosinophils 0.9 % (0.0-10.0); %Lymphocytes 15.1 % (21.0-51.0); %Monocytes 11.3 % (0.0-10.0); %Neutrophils 72.2 % (42.0-75.0); Hemoglobin 13.1 g/dL (14.0-18.0); Mean Corpuscular HGB CONC 32.9 g/dL (32.0-36.0); Mean Corpuscular Hemoglobin 30.5 pg (27.0-31.0); Mean Corpuscular Volume 92.9 fL (78.0-98.0); Mean Platelet Volume 9.1 fL (7.4-10.4); Platelet Count 135 thou/uL (130-400); RBC Distribution Width 12.7 % (11.5-14.5); Red Blood Cell (RBC) Count 4.28 mill/uL (4.70-6.10); White Blood Cell (WBC) Count 7.2 thou/uL (4.8-10.8)
--- NOTE | 2019-11-03 21:55 | RAD ---
Chest AP view INDICATION: History of fever and generalized weakness COMPARISON: Prior exam dated April 11, 20262018 FINDINGS: Lungs: The lungs are clear Cardiac silhouette: There is stable mild cardiomegaly. There is stable loop recorder around the left chest wall. There are vascular calcifications involving thoracic aorta. Pulmonary vasculature: Normal Pleural spaces: No pleural effusion or pneumothorax is demonstrated. Upper abdomen: No abnormality seen. Osseous structures: No acute osseous abnormality. Additional findings: None. IMPRESSION: No acute cardiopulmonary abnormality.
[2019-11-03 22:16] LABS: ALT (SGPT) 54 U/L (8-55); AST (SGOT) 38 U/L (5-34); Albumin 3.9 g/dL (3.4-4.8); Alkaline Phosphatase 113 U/L (40-110); Anion Gap 13 mmol/L (10-20); BUN (Urea Nitrogen) 14 mg/dL (8.4-25.7); Calc. Creatinine Clearance 0 mL/min (70-130); Calcium 8.8 mg/dL (7.8-10.44); Carbon Dioxide 22 mmol/L (23-31); Chloride 107 mmol/L (98-107); Estimated GFR-MDRD 48; Globulin 2.4 g/dL (2.4-3.5); Glucose 113 mg/dL (83-110); Potassium 3.9 mmol/L (3.5-5.1); Protein, Total 6.3 g/dL (5.8-8.1); Sodium 138 mmol/L (136-145)
[2019-11-03 22:24] LABS: Bilirubin Negative (Negative); Blood, Urine Negative (Negative); Clarity Clear (Clear); Glucose, Urine (Dipstick) Normal (Negative); Leukocyte Negative Leu/uL (Negative); Nitrite Negative (Negative); Protein, Urine (Dipstick) 20 mg/dL (Neg-Trace); Urobilinogen Normal mg/dL (Less than 2)
[2019-11-04 17:18] LABS: SARS-CoV-2 MS2 Positive; SARS-CoV-2 N Gene Negative; SARS-CoV-2 S Gene Negative; SARS-CoV-2 orf1ab Negative
== END 2019-11-04 00:25 | disposition home or self-care (01) ==
LOC: ERS 21:01
DX: R53.81 Other malaise (principal); Z20.828 Contact with and (suspected) exposure to other viral communicable diseases; E78.5 Hyperlipidemia, unspecified; I10 Essential (primary) hypertension; Z79.82 Long term (current) use of aspirin; Z79.899 Other long term (current) drug therapy
CPT/HCPCS: 71045; 80053; 81003; 84484; 85025; 93005; 99284; U0003; 87635

== ENCOUNTER 2020-03-14 14:29 | Outpatient (CLI) | payer MEDICARE, BC ==
--- NOTE | 2020-03-14 15:05 | MMO ---
Bilateral MAMMO Bilat Diag DDI+TEVIN. CLINICAL HISTORY: Patient is 89 years old and is seen for diagnostic exam. The patient has no family history of breast cancer. The patient has no personal history of cancer. VIEWS: The views performed were: bilateral craniocaudal with tomosynthesis; bilateral mediolateral oblique with tomosynthesis; and bilateral mediolateral with tomosynthesis. FILMS COMPARED: The present examination has been compared to a prior imaging study performed at [facility] on 03/14/2020. This study has been interpreted with the assistance of computer-aided detection. MAMMOGRAM FINDINGS: The breasts are almost entirely fat. Bilateral, left greater than right, gynecomastia is demonstrated. There are no suspicious masses, suspicious calcifications, or areas of architectural distortion. IMPRESSION: THERE IS NO MAMMOGRAPHIC EVIDENCE OF MALIGNANCY. ANY DECISION TO BIOPSY SHOULD BE BASED ON CLINICAL ASSESSMENT. THE RESULTS OF THIS EXAM WERE SENT TO THE PATIENT. ACR BI-RADS Category 2 - Benign finding MAMMOGRAPHY NOTE: 1. A negative mammogram report should not delay a biopsy if a dominant of clinically suspicious mass is present. 2. Approximately 10% to 15% of breast cancers are not detected by mammography. 3. Adenosis and dense breasts may obscure an underlying neoplasm. Reported by: SIMIN PEREZ MD Electonically Signed: [id number]
== END 2020-03-14 14:30 | disposition home or self-care (01) ==
LOC: BICMAMMO 14:29
PROVIDERS: ATTEND Family Medicine
DX: N62 Hypertrophy of breast (principal)
CPT/HCPCS: 77066; G0279